=== PATIENT | male | born 1965 | race Caucasian/White ===

== ENCOUNTER → 2017-08-28 | Outpatient (CLI) | payer BC ==
--- NOTE | 2017-08-28 17:19 | EST ---
EXERCISE STRESS DATE OF SERVICE: 08/28/2017. AGE: 51 SEX: M HT: 6 foot 1 WT: 190 PROTOCOL: Escobar STAGE: III DURATION OF EXERCISE: 10:02 HEART RATE REST: 64 BLOOD PRESSURE REST: 156/71 MAXIMUM HEART RATE ACHIEVED: 156 MAXIMUM BLOOD PRESSURE: 190/76 85% MPHR: 144 100% MPHR: 169 METS: 11.7 INDICATION OF THE STUDY: Chest pain. CLINICAL INFORMATION: STRESS DATA: Pretesting physical examination showed a heart rate of 64, pressure is 106/71 mmHg. Baseline EKG showed sinus mechanism. The patient exercised on the treadmill under Escobar protocol for a total of 10 minutes and achieved 11.7 METS. Max heart rate was 156, which is about 92% of maximum predicted heart rate. Maximum blood pressure was 190/76 mmHg. Clinically the patient did not have any symptoms of chest pain or discomfort and the EKG did not show any significant ST or T-wave abnormalities consistent with ischemia. CONCLUSION: 1. Excellent exercise capacity. 2. Normal EKG in response to exercise. MMODL / IJN: [id number] /
== END | disposition home or self-care (01) ==
LOC: RADNMMAIN 10:34
PROVIDERS: ATTEND Family Medicine
DX: R07.9 Chest pain, unspecified (principal)
CPT/HCPCS: 93017

== ENCOUNTER → 2018-04-16 | Outpatient (CLI) | payer BC ==
--- NOTE | 2018-04-16 11:58 | CT ---
EXAMINATION TYPE: CT chest w con DATE OF EXAM: 04/16/2018 COMPARISON: None HISTORY: Dyspnea, abnormal labs CT DLP: 410.7 mGycm Automated exposure control for dose reduction was used. CONTRAST: CT scan of the chest is performed with IV Contrast, patient injected with 100 mL of Isovue 300. FINDINGS: LUNGS: The lungs are grossly clear, there is no concerning parenchymal mass or nodule identified. T here is no pleural effusion or pneumothorax seen. The tracheobronchial tree is patent. MEDIASTINUM: There are no greater than 1 cm hilar or mediastinal lymph nodes. No pericardial effusi on is seen. Thoracic aorta is of normal caliber. The heart is not enlarged. UPPER ABDOMEN: No significant abnormality appreciated. OTHER: No additional significant abnormality is seen. IMPRESSION: 1. No distinct abnormality appreciated to account for the patient's symptoms.
== END ==
LOC: RADCTMAIN 11:03
PROVIDERS: ATTEND Internal Medicine Rheumatology
DX: R06.02 Shortness of breath (principal)
CPT/HCPCS: 71260; Q9967

== ENCOUNTER 2018-05-27 18:24 | Inpatient (IN) | payer BC ==
[2018-05-27] MEDS ORDERED: ASPIRIN 81 MG PO STA (20:04)
[2018-05-27] MEDS ORDERED: NITROGLYCERIN OINT 1 INCH/GM PACKET TOPICAL STA (20:04)
--- NOTE | 2018-05-27 20:15 | ED ---
Chest Pain HPI - General Chief Complaint: Chest Pain Stated Complaint: chest pain Time Seen by Provider: 05/27/18 20:03 Source: patient Mode of arrival: wheelchair Limitations: no limitations - History of Present Illness Initial Comments: This 52-year-old white male presents with a complaint of some chest pain. He states that this is on the left side of his chest and seems radiate into his left back. It started approximately 1 hour prior to arrival and may have lasted 15-20 minutes. He states that he had some radiation going down both of his arms as well. He denies any shortness of breath or nausea or vomiting. He ate relates a history of having a myocardial infarction approximately 5 days ago. He was seen at a small hospital in the [facility] and transferred to [place]. He did have a heart catheterization which did show a 99 % blockage and he ended up receiving a stent. He was just discharged from the hospital one to 2 days ago. He states that this occurred while he was in a grocery store. He was walking but not significantly exerting himself. He denies any leg pain or swelling. He is quite anxious regarding his symptoms due to his recent history. No other complaints or modifying factors. - Related Data Home Medications Medication Instructions Recorded Confirmed Aspirin EC [Ecotrin Low Dose] 81 mg PO DAILY 05/27/18 05/27/18 Atorvastatin [Lipitor] 40 mg PO HS 05/27/18 05/27/18 Clopidogrel [Plavix] 75 mg PO DAILY 05/27/18 05/27/18 Famotidine [Pepcid] 20 mg PO BID 05/27/18 05/27/18 Nitroglycerin Sl Tabs [Nitrostat] 0.4 mg SUBLINGUAL Q5M PRN 05/27/18 05/27/18 Allergies Allergy/AdvReac Type Severity Reaction Status Date / Time venom-wasp Allergy Anaphylaxis Verified 05/27/18 20:43 Review of Systems ROS Statement: Those systems with pertinent positive or pertinent negative responses have been documented in the HPI. ROS Other: All systems not noted in ROS Statement are negative. Past Medical History Past Medical History: Coronary Artery Disease (CAD), GERD/Reflux, Myocardial Infarction ([place]) History of Any Multi-Drug Resistant Organisms: None Reported Past Surgical History: Back Surgery, Heart Catheterization With Stent Additional Past Surgical History / Comment(s): Rhizotomy, Past Anesthesia/Blood Transfusion Reactions: No Reported Reaction Past Psychological History: No Psychological Hx Reported Smoking Status: Never smoker Past Alcohol Use History: None Reported Past Drug Use History: None Reported - Past Family History Mother Family Medical History: No Reported History General Exam - General Exam Comments Initial Comments: GENERAL: The patient is well nourished and well hydrated. VITAL SIGNS: Heart rate, blood pressure, respiratory rate reviewed as recorded in nurse's notes. EYES: Pupils are round and reactive. Extraocular movements are intact. No conjunctival / lid redness or swelling. ENT: No external evidence of injury, swelling, or ecchymosis. Airway is patent. Throat is clear. NECK: Nontender. No swelling or evidence of injury. No subcutaneous emphysema. Trachea is midline. No thyroid mass. HEART: Regular rate and rhythm. Good peripheral pulses. LUNGS/CHEST: Breath sounds clear and equal bilaterally. No rales, rhonchi, or wheezes. No ecchymosis, subcutaneous emphysema, or tenderness. ABDOMEN: Abdomen soft without tenderness. No palpable masses or organomegaly. No peritoneal signs. No abdominal wall swelling or ecchymosis. EXTREMITIES: No extremity tenderness. Normal muscle tone and function. No thoracolumbar tenderness. NEUROLOGIC: Sensation is grossly intact. Cranial nerve exam reveals face is symmetrical, tongue is midline, speech is clear. SKIN: No abrasions or ecchymosis is noted. No induration or masses noted. PSYCHIATRIC: Alert and oriented. Appropriate behavior and judgment. Appears moderately anxious. Limitations: no limitations Course Vital Signs 05/27/18 05/27/18 05/27/18 18:26 20:50 21:00 Temperature 97.9 F Pulse Rate 70 67 Respiratory 18 7 L Rate Blood Pressure 135/71 122/84 122/84 O2 Sat by Pulse 99 98 Oximetry 05/27/18 05/27/18 05/27/18 21:10 21:20 21:30 Temperature Pulse Rate 71 67 Respiratory 10 L 15 13 Rate Blood Pressure 122/84 122/84 120/81 O2 Sat by Pulse 97 96 97 Oximetry 05/27/18 05/27/18 05/27/18 21:40 21:50 22:00 Temperature Pulse Rate 69 72 68 Respiratory 8 L 9 L 12 Rate Blood Pressure 121/76 121/76 121/76 O2 Sat by Pulse 97 98 Oximetry Chest Pain MDM - MDM The patient was seen and examined. All diagnostics were reviewed. An IV is established and he is placed on cyberathlete. No ectopy is identified. He does receive an aspirin as well as some Nitropaste. The EKG shows a normal sinus rhythm at a rate of 67. There is some slight T-wave inversions in leads V5 and V6 and flattened T waves in 1 and aVL. There is some mild artifact. There is no ST elevation identified. The IN intervals 126, QRS duration is 100 , and the QTC intervals 412. The laboratory came back all essentially within normal limits except for an elevated troponin at 2.0. The patient had a chest x -ray which did not show any acute abnormalities. He is not having any chest pain on recheck. He states that his back oftentimes gets sore and he will take Tylenol for that. He is given some Tylenol orally. The case is discussed with Dr. Miranda and he is agreeable with admission. Disposition Clinical Impression: Chest pain, Elevated troponin, Unstable angina, History of heart artery stent Disposition: ADMITTED IP TO THIS HOSP Condition: Fair Is patient prescribed a controlled substance at d/c from ED?: No Referrals: Luis Alberto Munguia MD [Primary Care Provider] - 1-2 days Time of Disposition: 22:29 Decision Date: 05/27/18 Decision Time: 22:29
[2018-05-27 20:39] LABS: Basophils # (A) 0.1 k/uL (0-0.2); Basophils % (A) 1 %; Eosinophils # (A) 0.1 k/uL (0-0.7); Eosinophils % (A) 1 %; HCT 46.4 % (39.0-53.0); HGB 15.3 gm/dL (13.0-17.5); Lymphocytes # (A) 1.3 k/uL (1.0-4.8); Lymphocytes % (A) 15 %; MCH 29.8 pg (25.0-35.0); MCV 90.1 fL (80.0-100.0); Mean Platelet Volume 7.3; Monocytes # (A) 0.5 k/uL (0-1.0); Monocytes % (A) 6 %; Neutrophils # (A) 7.1 k/uL (1.3-7.7); Neutrophils % (A) 77 %; Platelet Count 289 k/uL (150-450); RBC 5.14 m/uL (4.30-5.90); RDW 12.3 % (11.5-15.5); WBC 9.2 k/uL (3.8-10.6)
[2018-05-27 20:47] LABS: Partial Thromboplastin Time 22.5 sec (22.0-30.0); Prothrombin Time 10.5 sec (9.0-12.0)
[2018-05-27 20:48] LABS: ALT 51 U/L (21-72); AST 28 U/L (17-59); Albumin 4.7 g/dL (3.5-5.0); Alkaline Phosphatase 64 U/L (38-126); Anion Gap 9 mmol/L; Blood Urea Nitrogen 19 mg/dL (9-20); Calcium 9.6 mg/dL (8.4-10.2); Carbon Dioxide 30 mmol/L (22-30); Chloride 102 mmol/L (98-107); Glucose 99 mg/dL (74-99); Magnesium 2.3 mg/dL (1.6-2.3); Potassium 3.9 mmol/L (3.5-5.1); Sodium 141 mmol/L (137-145); Total Bilirubin 0.7 mg/dL (0.2-1.3); Total Protein 7.5 g/dL (6.3-8.2)
[2018-05-27 21:00] LABS: Creatine Kinase MB 0.8 ng/mL (0.0-2.4)
[2018-05-27 21:01] LABS: Troponin I 2.03 ng/mL (0.000-0.034)
--- NOTE | 2018-05-27 21:16 | XR ---
EXAMINATION: XR chest 2V DATE AND TIME: 05/27/2018 9:01 PM CLINICAL INDICATION: PHH; Chest Pain TECHNIQUE: Departmental protocol COMPARISON: 01/29/2016 FINDINGS: The lungs are clear. The pleural spaces are negative. The cardiac silhouette is not enlarged. The remainder of the mediastinal silhouette is unremarkable. The skeletal structures and soft tissues are negative for acute findings. IMPRESSION: NO ACUTE PROCESS.
[2018-05-27] MEDS ORDERED: HEPARIN SODIUM,PORCINE 5,000 UNIT/ML 1 ML VIAL IV ONE (21:31)
[2018-05-27] MEDS ORDERED: HEPARIN SODIUM,PORCINE 5,000 UNIT/ML 1 ML VIAL IV PRN (21:31)
[2018-05-27] MEDS ORDERED: HEPARIN SOD,PORK IN 0.45% NACL 25,000 UNIT in 0.45% NACL 1 250ML.BAG IV SCH (21:45)
[2018-05-27] MEDS ORDERED: ACETAMINOPHEN TAB 500 MG TAB PO STA (22:20)
[2018-05-27] MEDS ORDERED: NITROGLYCERIN SL TABS 0.4 MG TAB SUBLINGUAL PRN (22:30)
[2018-05-27] MEDS ORDERED: ACETAMINOPHEN TAB 500 MG TAB PO PRN (22:34)
[2018-05-27] MEDS ORDERED: LORazepam 2 MG/ML INJ IV STA ×2 (22:50→22:51)
[2018-05-27 22:57] VITALS: TEMP 97.2
[2018-05-28] MEDS: NITROGLYCERIN OINT 1 INCH/GM PACKET TOPICAL SCH ×2 (00:56→07:03)
[2018-05-28 03:45] LABS: Creatine Kinase MB 0.7 ng/mL (0.0-2.4)
[2018-05-28 03:46] LABS: Troponin I 1.76 ng/mL (0.000-0.034)
[2018-05-28 08:05] LABS: Basophils # (A) 0.1 k/uL (0-0.2); Basophils % (A) 1 %; Eosinophils # (A) 0.2 k/uL (0-0.7); Eosinophils % (A) 2 %; HCT 40.8 % (39.0-53.0); HGB 13.7 gm/dL (13.0-17.5); Lymphocytes # (A) 1.5 k/uL (1.0-4.8); Lymphocytes % (A) 19 %; MCH 30.3 pg (25.0-35.0); MCHC 33.6 g/dL (31.0-37.0); MCV 90.1 fL (80.0-100.0); Mean Platelet Volume 6.8; Monocytes # (A) 0.5 k/uL (0-1.0); Monocytes % (A) 7 %; Neutrophils # (A) 5.3 k/uL (1.3-7.7); Neutrophils % (A) 70 %; Platelet Count 273 k/uL (150-450); RBC 4.53 m/uL (4.30-5.90); RDW 12.3 % (11.5-15.5); WBC 7.6 k/uL (3.8-10.6)
--- NOTE | 2018-05-28 08:20 | P.CRDCN ---
History of Present Illness Consult date: 05/28/18 Requesting physician: Teodoro Miranda Consult reason: chest pain Chief complaint: Back discomfort History of present illness: This is a pleasant 52-year-old gentleman with history of hyperlipidemia, strong family history of premature coronary artery disease who recently had an acute [place] and was transferred to [facility] where he underwent angioplasty and stenting of the circumflex artery. According to the patient, his hospitalization was fairly uneventful other than the fact that he was quite hypotensive and for this reason was not discharged home with his beta amanda or BARBARA inhibitor. He was discharged home with aspirin, Plavix, and Lipitor. Patient was discharged from the hospital on Saturday, yesterday the patient states he was out doing some shopping with his , he states that all of a sudden he just did not feel well, he experienced some discomfort in his back and for this reason came to the emergency room for further evaluation. At the time of his presentation with his AZ, he states that he was with his son putting balls into a pitching machine, when he developed sudden onset of what he described as heartburn sensation which progressively worsened. Patient does state that he is quite anxious since his heart attack, noticing every ache and pain and unsure if it's his heart or not. The patient has otherwise been quite active, he is the [place] [employer], with no prior documented history of hypertension diabetes or hyperlipidemia prior to his event. He is a nonsmoker. Blood pressure 97/50, heart rate in the 60s, 96% on room air. His EKG on arrival here showed a normal sinus rhythm with nonspecific ST-T wave changes in the lateral leads. Subsequent EKG performed this morning showed a normal sinus rhythm with mild ST-T wave changes noted in the lateral leads. CBC is normal, sodium 141, potassium 3.9, BUN 19, creatinine 0.8. Magnesium 2.3. Troponin 2.0 , 1.7. BNP level 343. At the time of my examination this morning, patient feels well, denies any chest discomfort, breathing is stable. Past Medical History Past Medical History: Coronary Artery Disease (CAD), GERD/Reflux, Myocardial Infarction ([place]) Last Myocardial Infarction Date:: 05/22/18 History of Any Multi-Drug Resistant Organisms: None Reported Past Surgical History: Back Surgery, Heart Catheterization With Stent, Tonsillectomy Additional Past Surgical History / Comment(s): Rhizotomy Past Anesthesia/Blood Transfusion Reactions: No Reported Reaction Date of Last Stent Placement:: 05/22/18 Past Psychological History: No Psychological Hx Reported Smoking Status: Never smoker Past Alcohol Use History: None Reported Past Drug Use History: None Reported - Past Family History Mother Family Medical History: No Reported History Medications and Allergies Home Medications Medication Instructions Recorded Confirmed Type Aspirin EC [Ecotrin Low Dose] 81 mg PO DAILY 05/27/18 05/27/18 History Atorvastatin [Lipitor] 40 mg PO HS 05/27/18 05/27/18 History Clopidogrel [Plavix] 75 mg PO DAILY 05/27/18 05/27/18 History Famotidine [Pepcid] 20 mg PO BID 05/27/18 05/27/18 History Nitroglycerin Sl Tabs [Nitrostat] 0.4 mg SUBLINGUAL Q5M PRN 05/27/18 05/27/18 History Allergies Allergy/AdvReac Type Severity Reaction Status Date / Time venom-wasp Allergy Anaphylaxis Verified 05/27/18 20:43 Physical Exam Vitals: Vital Signs Temp Pulse Pulse Resp BP BP Pulse Ox 05/28/18 03:53 65 15 97/51 96 05/27/18 23:45 18 05/27/18 23:44 97 18 119/68 96 05/27/18 22:56 97.2 F L 05/27/18 22:50 93 25 H 141/86 96 05/27/18 22:40 68 8 L 132/84 05/27/18 22:30 83 13 132/84 96 05/27/18 22:20 63 8 L 118/74 05/27/18 22:10 78 15 118/74 98 05/27/18 22:00 68 12 121/76 05/27/18 21:50 72 9 L 121/76 98 05/27/18 21:40 69 8 L 121/76 97 05/27/18 21:30 13 120/81 97 05/27/18 21:20 67 15 122/84 96 05/27/18 21:10 71 10 L 122/84 97 05/27/18 21:00 122/84 05/27/18 20:50 67 7 L 122/84 98 05/27/18 18:26 97.9 F 70 18 135/71 99 Intake and Output 05/27/18 05/28/18 05/28/18 22:59 06:59 14:59 Intake Total 53.333 Balance 53.333 Intake: Intake, IV Titration 53.333 Amount Heparin Sod,Pork in 0.45% 53.333 NaCl 25,000 unit In 0.45 % NaCl 1 250ml.bag @ 10 mls/hr IV .Q24H [facility] Rx#: [id number] Other: Voiding Method Toilet # Voids 1 2 Weight 86.183 kg PHYSICAL EXAMINATION: GENERAL: 52-year-old gentleman in no acute distress at the time of my examination HEENT: Head is atraumatic, normocephalic. Pupils equal, round. Sclera anicteric. Conjunctiva are clear. Mucous membranes of the mouth are moist. Neck is supple. There is no elevated jugular venous pressure. No carotid bruit is heard. HEART EXAMINATION: Heart S1, S2 normal. No murmur or gallop heard. CHEST EXAMINATION: Lungs are clear to auscultation and precussion. No chest wall tenderness is noted on palpation or with deep breathing. ABDOMEN: Soft, nontender. Bowel sounds are heard. No organomegaly noted. EXTREMITIES: 2+ peripheral pulses with no evidence of peripheral edema and no calf tenderness noted. NEUROLOGIC patient is awake, alert and oriented 3 . . Results 05/28/18 07:38 05/27/18 20:23 Cardiac Enzymes 05/27/18 05/27/18 05/28/18 Range/Units 20:23 20:23 02:49 AST 28 (17-59) U/L CK-MB (CK-2) 0.8 0.7 (0.0-2.4) ng/mL Troponin I 2.030 H* 1.760 H* (0.000-0.034) ng/mL Coagulation 05/27/18 05/28/18 Range/Units 20:23 02:49 PT 10.5 (9.0-12.0) sec APTT 22.5 35.6 H (22.0-30.0) sec CBC 05/27/18 05/28/18 Range/Units 20:23 07:38 WBC 9.2 7.6 (3.8-10.6) k/uL RBC 5.14 4.53 (4.30-5.90) m/uL Hgb 15.3 13.7 (13.0-17.5) gm/dL Hct 46.4 40.8 (39.0-53.0) % Plt Count 289 273 (150-450) k/uL Comprehensive Metabolic Panel 05/27/18 Range/Units 20:23 Sodium 141 (137-145) mmol/L Potassium 3.9 (3.5-5.1) mmol/L Chloride 102 (98-107) mmol/L Carbon Dioxide 30 (22-30) mmol/L BUN 19 (9-20) mg/dL Creatinine 0.89 (0.66-1.25) mg/dL Glucose 99 (74-99) mg/dL Calcium 9.6 (8.4-10.2) mg/dL AST 28 (17-59) U/L ALT 51 (21-72) U/L Alkaline Phosphatase 64 (38-126) U/L Total Protein 7.5 (6.3-8.2) g/dL Albumin 4.7 (3.5-5.0) g/dL Current Medications Generic Name Dose Route Start Last Admin Trade Name Freq PRN Reason Stop Dose Admin Acetaminophen 1,000 mg 05/27/18 22:34 Tylenol Tab PO Q6H PRN Pain Aspirin 325 mg 05/28/18 09:00 Aspirin PO DAILY [facility] Atorvastatin Calcium 40 mg 05/28/18 21:00 Lipitor PO HS [facility] Clopidogrel Bisulfate 75 mg 05/28/18 09:00 Plavix PO DAILY [facility] Famotidine 20 mg 05/28/18 09:00 Pepcid PO BID [facility] Heparin Sodium (Porcine) 0 unit 05/27/18 21:31 Heparin IV PER PROTOCOL PRN Low PTT Protocol Heparin Sodium/Sodium Chloride 250 mls @ 10 mls/hr 05/27/18 21:45 05/28/18 03 :38 25,000 unit/ Sodium Chloride IV 1,255 units/hr .Q24H [facility] 12.55 mls/hr Titration Protocol Nitroglycerin 1 inch 05/28/18 00:00 05/28/18 07:03 Nitro-Bid Oint TOPICAL Not Given Q6HR [facility] Nitroglycerin 0.4 mg 05/27/18 22:30 Nitrostat SUBLINGUAL Q5M PRN Chest Pain Intake and Output 05/27/18 05/28/18 05/28/18 22:59 06:59 14:59 Intake Total 53.333 Balance 53.333 Intake: Intake, IV Titration 53.333 Amount Heparin Sod,Pork in 0.45% 53.333 NaCl 25,000 unit In 0.45 % NaCl 1 250ml.bag @ 10 mls/hr IV .Q24H [facility] Rx#: [id number] Other: Voiding Method Toilet # Voids 1 2 Weight 86.183 kg 05/28/18 07:38 05/27/18 20:23 EKG Interpretations (text) EKG shows normal sinus rhythm with lateral ST-T wave changes Assessment and Plan Plan: Assessment and plan #1 back discomfort, atypical for acute coronary syndrome. EKG shows normal sinus rhythm with lateral ST-T wave changes. Troponins 2.0 and 1.7. #2 recent myocardial infarction with stenting of the circumflex artery, troponins appear to be on a downward trend from that event. #3 hyperlipidemia #4 family history of premature coronary artery disease Plan We will continue aspirin along with Plavix and Lipitor. Patient is currently not on an BARBARA inhibitor or beta amanda, because they were discontinued prior to his discharge, and it because of hypotension. We will obtain an echocardiogram with Doppler study. Further recommendations to follow. DNP note has been reviewed, I agree with a documented findings and plan of care. Patient was seen and examined.
[2018-05-28 08:27] LABS: Cholesterol 125 mg/dL (<200); HDL Cholesterol 30 mg/dL (40-60); LDL Cholesterol,Calculated 81 mg/dL (0-99); Triglycerides 70 mg/dL (<150)
[2018-05-28 08:40] LABS: Creatine Kinase MB 0.7 ng/mL (0.0-2.4)
[2018-05-28 08:43] LABS: Troponin I 1.49 ng/mL (0.000-0.034)
[2018-05-28] MEDS ORDERED: ASPIRIN 81 MG PO SCH (09:00)
[2018-05-28] MEDS ORDERED: FAMOTIDINE 20 MG TAB PO SCH (09:00)
[2018-05-28] MEDS ORDERED: CLOPIDOGREL 75 MG TAB PO SCH (09:00)
[2018-05-28] MEDS ORDERED: ASPIRIN 325 MG TAB PO SCH (09:00)
--- NOTE | 2018-05-28 10:18 | ECHOF ---
Referral Reason:assess lvf MEASUREMENTS -------- HEIGHT: 180.3 cm WEIGHT: 86.2 kg BP: IVSd: 1.2 cm (0.6 - 1.1) LVIDd: 3.5 cm (3.9 - 5.3) LVPWd: 1.5 cm (0.6 - 1.1) IVSs: 1.6 cm LVIDs: 2.2 cm LVPWs: 2.0 cm Ao Diam: 3.0 cm (2.0 - 3.7) AV Cusp: 2.3 cm (1.5 - 2.6) LA Diam: 2.9 cm (2.7 - 3.8) MV EXCURSION: 17.007 mm (> 18.000) MV EF SLOPE: 85 mm/s (70 - 150) EPSS: 0.4 cm MV E Jensen: 0.90 m/s MV DecT: 203 ms MV A Jensen: 0.90 m/s MV E/A Ratio: 1.00 FINDINGS -------- Resting tachycardia (HR>100bpm). This was a technically good study. The left ventricular size is normal. There is mild concentric left ventricular hypertrophy. Overa ll left ventricular systolic function is normal with, an EF between 55 - 60 %. The right ventricle is normal in size and function. The left atrium is normal in size. The right atrium is normal in size. The aortic valve is trileaflet and appears structurally normal. Mild mitral regurgitation is present. Mild tricuspid regurgitation present. The right ventricular systolic pressure, as measured by Doppl er, is {RVSP}. Pulmonic valve appears structurally normal. The aortic root size is normal. Normal inferior vena cava with normal inspiratory collapse consistent with estimated right atrial pre ssure of 5 mmHg. The pericardium is normal. CONCLUSIONS -------- 1. Resting tachycardia (HR>100bpm). 2. This was a technically good study. 3. The left ventricular size is normal. 4. There is mild concentric left ventricular hypertrophy. 5. Overall left ventricular systolic function is normal with, an EF between 55 - 60 %. 6. The right ventricle is normal in size and function. 7. The left atrium is normal in size. 8. The right atrium is normal in size. 9. The aortic valve is trileaflet and appears structurally normal. 10. Mild mitral regurgitation is present. 11. Mild tricuspid regurgitation present. 12. The right ventricular systolic pressure, as measured by Doppler, is {RVSP}. 13. Pulmonic valve appears structurally normal. 14. The aortic root size is normal. 15. Normal inferior vena cava with normal inspiratory collapse consistent with estimated right atrial pressure of 5 mmHg. 16. The pericardium is normal. UTILITY AIDE: Cate Dick RDCS
[2018-05-28 16:42] VITALS: BP 115/70; PULSE 70; RESP 18
[2018-05-28] MEDS ORDERED: ATORVASTATIN 40 MG TAB PO SCH (21:00)
--- NOTE | 2018-05-29 07:15 | DS ---
DISCHARGE SUMMARY HISTORY PHYSICAL AND DISCHARGE SUMMARY: DATE OF ADMISSION: 05/27/2018 DATE OF DISCHARGE: 05/28/2018 DATE OF SERVICE: 05/28/2018 PRESENTING COMPLAINT: Back pain. HISTORY OF PRESENTING COMPLAINT: This is a very pleasant 52-year-old patient whose family doctor is Dr. Munguia. Chronic stable medical conditions include GERD, upper back pain, muscle spasms. Patient was in [facility] and underwent a stent to the circumflex on May 22 Patient was home for one day, was there for five days. Patient went to the grocery store with his and normally does get pain between the scapula. This time again he got the pain between the scapula, but this time the pain also went down both the arms and caused discomfort. There was no dizziness. No lightheadedness. No perspiration. Because of his recent coronary intervention, patient became somewhat concerned and decided to come into the ER. ADMITTING DIAGNOSIS: Unstable angina in for a cardiology workup. Patient's troponins were coming down. Cardiology was consulted for the same. Patient also was put on IV heparin. REVIEW OF SYSTEMS: CONSTITUTIONAL: None. HEENT: None. RESPIRATORY: None. CARDIOVASCULAR: No precordial pain. GASTROINTESTINAL: Heartburn. GENITOURINARY: None. MUSCULOSKELETAL: Chronic upper back pain. DERMATOLOGICAL: None. LYMPHATIC: None. PSYCHIATRY: Anxious. NEUROLOGICAL: None. PAST MEDICAL HISTORY: Coronary artery with stent to the circumflex a week ago, GERD, upper back pain from spasm from surgery. PAST SURGICAL HISTORY: Back surgical history, cardiac cath with stent, tonsillectomy, rhizotomy. SOCIAL HISTORY: No smoking, no alcohol. Patient is a [employer] [place] fire[employer], with 3 children, no smoking, alcohol rarely. FAMILY HISTORY: Reviewed, noncontributory to presentation. HOME MEDICATIONS: 1. Nitrostat 0.4 sublingual q.5 p.r.n. 2. Pepcid 20 mg b.i.d. 3. Plavix 75 mg p.o. daily. 4. Lipitor 40 mg q.h.s. 5. Aspirin 81 mg p.o. daily. ALLERGIES: To VENOM WASP. PHYSICAL EXAMINATION: Vital signs on presentation, temperature 97.9, pulse 90, respiration 18, blood pressure 135/71, pulse ox 99% on room air. GENERAL APPEARANCE: Average build, sitting up, anxious-appearing. EYES: Pupils equal, conjunctivae normal. HEENT: External appearance of nose is normal, oral cavity normal. NECK: JVD not raised. Mass not palpable. RESPIRATORY: Effort normal. Lungs are clear. CARDIOVASCULAR: First and second sounds are normal, no edema. ABDOMEN: Soft, nontender. Liver and spleen not palpable. LYMPHATIC: No lymph node palpable. PSYCHIATRY: Alert and oriented x3. Mood and affect slightly anxious-appearing. NEUROLOGICAL: Pupils equal. Cranial nerves grossly intact. Power and sensation grossly intact. INVESTIGATIONS: White count 9.2, hemoglobin 15.3, potassium 3.9. BUN and creatinine normal. Troponin 2.0, 1.7, 1.4. LDL 81. EKG tracing personally reviewed by me showed normal sinus rhythm and some nonspecific ST-segment changes in the anterolateral leads. Chest x-ray film personally reviewed by me, showed clear lung mansfield. ASSESSMENT: 1. Upper back pain in a patient who has had chronic back pain. This could be musculoskeletal. Patient was admitted to rule out unstable angina. 2. Elevated troponin, probably residual from recent DC and coronary intervention. 3. Upper back pain with muscle spasm. 4. Gastroesophageal reflux disease. 5. IV heparin monitoring. PLAN: Home medications are resumed. Patient is seen by Dr. Luna from Cardiology. I discussed with him, patient was encouraged to ambulate in the hallway. There was no further chest pain. Patient will be discharged home. Care was discussed with the patient. Also, alternative medications were discussed with him about his anxiety. Patient also look at cardiac rehab. Additionally, patient has not been taking BARBARA inhibitor or beta amanda because blood pressure has been running low. DISCHARGE MEDICATIONS: 1. Aspirin 81 mg a day. 2. Lipitor 40 mg q.h.s. 3. Plavix 75 mg a day. 4. Pepcid 20 mg b.i.d. 5. Nitrostat 0.4 q.5 p.r.n. Follow up with Dr. Luna on 06/03/2018. Follow up with Dr. Munguia on 05/30/2018. This is both a history and physical and discharge summary. MMODL / IJN: [id number] /
== END 2018-05-28 17:04 | disposition home or self-care (01) | DRG 551 ==
LOC: EC 18:24 → 3SCARD 22:29
PROVIDERS: ADMIT Hospitalist; ATTEND Hospitalist
DX: M62.830 Muscle spasm of back (principal); I21.9 Acute myocardial infarction, unspecified; R07.9 Chest pain, unspecified; E78.5 Hyperlipidemia, unspecified; F41.9 Anxiety disorder, unspecified; G89.29 Other chronic pain; K21.9 Gastro-esophageal reflux disease without esophagitis; I25.10 Atherosclerotic heart disease of native coronary artery without angina pectoris; M54.6 Pain in thoracic spine; Z95.5 Presence of coronary angioplasty implant and graft; Z79.02 Long term (current) use of antithrombotics/antiplatelets; Z79.82 Long term (current) use of aspirin; Z79.899 Other long term (current) drug therapy; Z91.038 Other insect allergy status; Z82.49 Family history of ischemic heart disease and other diseases of the circulatory system
CPT/HCPCS: 36415; 71046; 80053; 80061; 82550; 82553; 83735; 83880; 84484; 85025; 85610; 85730; 93005; 93306; 96365; 96375; 96376; 99285

== ENCOUNTER 2018-05-30 18:21 | Observation (INO) | payer BC ==
--- NOTE | 2018-05-30 18:49 | ED ---
General Adult HPI - General Chief complaint: Chest Pain Stated complaint: CHEST PAIN, HEART Hx Time Seen by Provider: 05/30/18 18:30 Source: patient, RN notes reviewed, old records reviewed Mode of arrival: ambulatory Limitations: no limitations - History of Present Illness Initial comments: 52-year-old male history of CAD status post [place] with stent placement 8 days ago. Patient was evaluated at an outside hospital, received coronary angiography to right radial artery, did have stent placed in the circumflex this was reported by the patient. He was seen here 2 days ago with anterior chest pain. Today he is presenting for reevaluation of chest pain. This is left anterior upper chest pain, worse with exertion. Symptoms began while the patient was walking around the grocery store. Denies significant dyspnea. Denies abdominal pain. Pain is nearly resolved at the time my evaluation. Patient did take his aspirin, Plavix this morning, he also took 2, 81 mg aspirin and one nitroglycerin just prior to arrival with some improvement in his symptoms. - Related Data Home Medications Medication Instructions Recorded Confirmed Aspirin EC [Ecotrin Low Dose] 81 mg PO DAILY 05/27/18 05/30/18 Atorvastatin [Lipitor] 40 mg PO HS 05/27/18 05/30/18 Clopidogrel [Plavix] 75 mg PO DAILY 05/27/18 05/30/18 Famotidine [Pepcid] 20 mg PO BID 05/27/18 05/30/18 Nitroglycerin Sl Tabs [Nitrostat] 0.4 mg SUBLINGUAL Q5M PRN 05/27/18 05/30/18 Fluticasone Nasal [place] [Flonase 1 spray EA NOSTRIL DAILY PRN 05/30/18 05/30/18 Nasal [place]] Allergies Allergy/AdvReac Type Severity Reaction Status Date / Time venom-wasp Allergy Anaphylaxis Verified 05/30/18 20:03 Review of Systems ROS Statement: Those systems with pertinent positive or pertinent negative responses have been documented in the HPI. ROS Other: All systems not noted in ROS Statement are negative. Past Medical History Past Medical History: Coronary Artery Disease (CAD), GERD/Reflux, Myocardial Infarction ([place]) Additional Past Medical History / Comment(s): STEMI Last Myocardial Infarction Date:: 05/22/18 History of Any Multi-Drug Resistant Organisms: None Reported Past Surgical History: Back Surgery, Heart Catheterization With Stent, Tonsillectomy Additional Past Surgical History / Comment(s): Rhizotomy Past Anesthesia/Blood Transfusion Reactions: No Reported Reaction Date of Last Stent Placement:: 05/22/18 Past Psychological History: No Psychological Hx Reported Smoking Status: Never smoker Past Alcohol Use History: None Reported Past Drug Use History: None Reported - Past Family History Mother Family Medical History: No Reported History General Exam Limitations: no limitations General appearance: alert, in no apparent distress Head exam: Present: atraumatic, normocephalic Eye exam: Present: normal appearance, PERRL ENT exam: Present: normal exam Neck exam: Present: normal inspection. Absent: tenderness, meningismus Respiratory exam: Present: normal lung sounds bilaterally. Absent: respiratory distress, wheezes, rales Cardiovascular Exam: Present: regular rate, normal rhythm GI/Abdominal exam: Present: soft. Absent: distended, tenderness, guarding Extremities exam: Present: normal inspection, normal capillary refill. Absent: pedal edema Neurological exam: Present: alert, oriented X3, CN II-XII intact. Absent: motor sensory deficit Psychiatric exam: Present: normal affect, normal mood Skin exam: Present: warm, dry, intact. Absent: cyanosis, diaphoretic Course Vital Signs 05/30/18 18:23 Temperature 97.4 F L Pulse Rate 77 Respiratory 20 Rate Blood Pressure 112/70 O2 Sat by Pulse 97 Oximetry EKG Findings - EKG Comments: EKG Findings:: EKG: Obtained at 1836, normal sinus rhythm, incomplete right bundle-branch block, interpreted as possible right ventricular hypertrophy, Q waves in both inferior and lateral precordial leads, rate of 71, MT interval 142 , QRS duration 102, QTC 425, no ST segment elevation or depression, T waves are upright in the lateral precordium compared to T-wave inversions on previous EKG. EKG obtained at 2019, normal sinus rhythm, incomplete right bundle branch block, possible right ventricular hypertrophy, rate of 76, MT interval 146, QRS duration 104, QTC 441 STsegmentelevationordepression Medical Decision Making - Medical Decision Making 52-year-old female history of WI 8 days prior presenting for reevaluation of exertional chest pain, left-sided chest pain. Pain is not positional. He developed pain while walking at the grocery store. Echo was reviewed from 2 days prior, showed EF of 55-60%, normal pericardium. Patient did have elevated troponins at that time these were down trending patient was discharged. Laboratory studies today reveal white blood cell count 9.8, hemoglobin 15.7, CMP is normal, troponin is elevated however it is down trending as 0.293. Patient's EKG is negative for ST segment elevation, no ST segment depression, T waves are upright. Given the elevated troponin, recent WI, patient will be admitted to ensure that troponins are down trending as his symptoms began 30 minutes prior to arrival. Serial cardiac enzymes will be obtained, patient will be kept on telemetry, he was initiated on heparin awaiting down trending enzymes. Cardiology placed on consult. - Lab Data Result diagrams: 05/30/18 18:43 05/30/18 18:43 Lab Results 05/30/18 05/30/18 05/30/18 Range/Units 18:43 18:43 18:43 WBC 9.8 (3.8-10.6) k/uL RBC 5.15 (4.30-5.90) m/uL Hgb 15.7 (13.0-17.5) gm/dL Hct 46.1 (39.0-53.0) % MCV 89.5 (80.0-100.0) fL MCH 30.5 (25.0-35.0) pg MCHC 34.0 (31.0-37.0) g/dL RDW 12.2 (11.5-15.5) % Plt Count 307 (150-450) k/uL Neutrophils % 75 % Lymphocytes % 17 % Monocytes % 5 % Eosinophils % 1 % Basophils % 1 % Neutrophils # 7.3 (1.3-7.7) k/uL Lymphocytes # 1.7 (1.0-4.8) k/uL Monocytes # 0.5 (0-1.0) k/uL Eosinophils # 0.1 (0-0.7) k/uL Basophils # 0.1 (0-0.2) k/uL PT (9.0-12.0) sec INR (<1.2) APTT (22.0-30.0) sec Sodium 139 (137-145) mmol/L Potassium 4.1 (3.5-5.1) mmol/L Chloride 102 (98-107) mmol/L Carbon Dioxide 27 (22-30) mmol/L Anion Gap 10 mmol/L BUN 18 (9-20) mg/dL Creatinine 0.95 (0.66-1.25) mg/dL Est GFR (CKD-EPI)AfAm >90 (>60 ml/min/1.73 sqM) Est GFR (CKD-EPI)NonAf >90 (>60 ml/min/1.73 sqM) Glucose 92 (74-99) mg/dL Calcium 9.6 (8.4-10.2) mg/dL Magnesium 2.1 (1.6-2.3) mg/dL Total Bilirubin 0.7 (0.2-1.3) mg/dL AST 35 (17-59) U/L ALT 63 (21-72) U/L Alkaline Phosphatase 69 (38-126) U/L Total Creatine Kinase 59 (55-170) U/L CK-MB (CK-2) 0.8 (0.0-2.4) ng/mL CK-MB (CK-2) Rel Index 1.4 Troponin I 0.293 H* (0.000-0.034) ng/mL NT-Pro-B Natriuret Pep pg/mL Total Protein 7.0 (6.3-8.2) g/dL Albumin 4.4 (3.5-5.0) g/dL 05/30/18 05/30/18 Range/Units 18:43 18:43 WBC (3.8-10.6) k/uL RBC (4.30-5.90) m/uL Hgb (13.0-17.5) gm/dL Hct (39.0-53.0) % MCV (80.0-100.0) fL MCH (25.0-35.0) pg MCHC (31.0-37.0) g/dL RDW (11.5-15.5) % Plt Count (150-450) k/uL Neutrophils % % Lymphocytes % % Monocytes % % Eosinophils % % Basophils % % Neutrophils # (1.3-7.7) k/uL Lymphocytes # (1.0-4.8) k/uL Monocytes # (0-1.0) k/uL Eosinophils # (0-0.7) k/uL Basophils # (0-0.2) k/uL PT 10.7 (9.0-12.0) sec INR 1.0 (<1.2) APTT 23.1 (22.0-30.0) sec Sodium (137-145) mmol/L Potassium (3.5-5.1) mmol/L Chloride (98-107) mmol/L Carbon Dioxide (22-30) mmol/L Anion Gap mmol/L BUN (9-20) mg/dL Creatinine (0.66-1.25) mg/dL Est GFR (CKD-EPI)AfAm (>60 ml/min/1.73 sqM) Est GFR (CKD-EPI)NonAf (>60 ml/min/1.73 sqM) Glucose (74-99) mg/dL Calcium (8.4-10.2) mg/dL Magnesium (1.6-2.3) mg/dL Total Bilirubin (0.2-1.3) mg/dL AST (17-59) U/L ALT (21-72) U/L Alkaline Phosphatase (38-126) U/L Total Creatine Kinase (55-170) U/L CK-MB (CK-2) (0.0-2.4) ng/mL CK-MB (CK-2) Rel Index Troponin I (0.000-0.034) ng/mL NT-Pro-B Natriuret Pep 279 pg/mL Total Protein (6.3-8.2) g/dL Albumin (3.5-5.0) g/dL Disposition Clinical Impression: Elevated troponin, Chest pain Disposition: ADMITTED IP TO THIS [facility] Condition: Stable Is patient prescribed a controlled substance at d/c from ED?: No Referrals: Luis Alberto Munguia MD [Primary Care Provider] - 1-2 days Decision to Admit Reason: Admit from EC Decision Date: 05/30/18 Decision Time: 20:32
[2018-05-30 19:13] LABS: Basophils # (A) 0.1 k/uL (0-0.2); Basophils % (A) 1 %; Eosinophils # (A) 0.1 k/uL (0-0.7); Eosinophils % (A) 1 %; HCT 46.1 % (39.0-53.0); HGB 15.7 gm/dL (13.0-17.5); Lymphocytes # (A) 1.7 k/uL (1.0-4.8); Lymphocytes % (A) 17 %; MCH 30.5 pg (25.0-35.0); MCV 89.5 fL (80.0-100.0); Mean Platelet Volume 6.8; Monocytes # (A) 0.5 k/uL (0-1.0); Monocytes % (A) 5 %; Neutrophils # (A) 7.3 k/uL (1.3-7.7); Neutrophils % (A) 75 %; Platelet Count 307 k/uL (150-450); RBC 5.15 m/uL (4.30-5.90); RDW 12.2 % (11.5-15.5); WBC 9.8 k/uL (3.8-10.6)
[2018-05-30 19:27] LABS: Partial Thromboplastin Time 23.1 sec (22.0-30.0); Prothrombin Time 10.7 sec (9.0-12.0)
[2018-05-30 19:28] LABS: ALT 63 U/L (21-72); AST 35 U/L (17-59); Albumin 4.4 g/dL (3.5-5.0); Alkaline Phosphatase 69 U/L (38-126); Anion Gap 10 mmol/L; Blood Urea Nitrogen 18 mg/dL (9-20); Calcium 9.6 mg/dL (8.4-10.2); Carbon Dioxide 27 mmol/L (22-30); Chloride 102 mmol/L (98-107); Glucose 92 mg/dL (74-99); Magnesium 2.1 mg/dL (1.6-2.3); Potassium 4.1 mmol/L (3.5-5.1); Sodium 139 mmol/L (137-145); Total Bilirubin 0.7 mg/dL (0.2-1.3)
[2018-05-30 19:41] LABS: Creatine Kinase MB 0.8 ng/mL (0.0-2.4)
[2018-05-30 19:44] LABS: Troponin I 0.293 ng/mL (0.000-0.034)
[2018-05-30] MEDS ORDERED: HEPARIN SODIUM,PORCINE 5,000 UNIT/ML 1 ML VIAL IV PRN (20:08)
[2018-05-30] MEDS ORDERED: HEPARIN SODIUM,PORCINE 5,000 UNIT/ML 1 ML VIAL IV ONE (20:08)
[2018-05-30] MEDS ORDERED: NITROGLYCERIN SL TABS 0.4 MG TAB SUBLINGUAL PRN (20:09)
[2018-05-30] MEDS ORDERED: HEPARIN SOD,PORK IN 0.45% NACL 25,000 UNIT in 0.45% NACL 1 250ML.BAG IV SCH (20:15)
--- NOTE | 2018-05-30 20:20 | XR ---
EXAMINATION: XR chest 2V DATE AND TIME: 05/30/2018 7:32 PM CLINICAL INDICATION: PHH; Chest Pain TECHNIQUE: Departmental protocol COMPARISON: 05/27/2018 9:06 PM FINDINGS: The lungs are clear. The pleural spaces are negative. The cardiac silhouette is not enlarged. The remainder of the mediastinal silhouette is unremarkable. The skeletal structures and soft tissues are negative for acute findings. IMPRESSION: NO ACUTE PROCESS.
[2018-05-30] MEDS ORDERED: MORPHINE SULFATE 4 MG/ML SYRINGE IV PRN (20:21)
[2018-05-30] MEDS ORDERED: ONDANSETRON 4 MG/2 ML VIAL IVP PRN (20:21)
[2018-05-30] MEDS ORDERED: NALOXONE 0.4 MG/ML 1 ML VIAL IV PRN (20:21)
[2018-05-30] MEDS ORDERED: SODIUM CHLORIDE 0.9% 1,000 ML IV SCH (20:30)
[2018-05-30] MEDS ORDERED: FAMOTIDINE 20 MG TAB PO STA (20:55)
[2018-05-30] MEDS ORDERED: ATORVASTATIN 40 MG TAB PO SCH (21:00)
[2018-05-30] MEDS: FAMOTIDINE 20 MG TAB PO SCH (21:01)
[2018-05-30] MEDS ORDERED: TEMAZEPAM 15 MG CAP PO PRN (21:42)
[2018-05-30 21:47] VITALS: BMI 25.7
[2018-05-30] MEDS: METOPROLOL TARTRATE 12.5 MG TAB PO SCH (22:01)
[2018-05-30] MEDS: ACETAMINOPHEN TAB 325 MG TAB PO PRN (23:37)
[2018-05-31 00:24] VITALS: RESP 18
[2018-05-31 01:37] LABS: Creatine Kinase MB 0.8 ng/mL (0.0-2.4)
[2018-05-31 01:59] LABS: Troponin I 0.296 ng/mL (0.000-0.034)
[2018-05-31 07:56] LABS: Basophils # (A) 0.1 k/uL (0-0.2); Basophils % (A) 1 %; Eosinophils # (A) 0.1 k/uL (0-0.7); Eosinophils % (A) 2 %; HCT 44.1 % (39.0-53.0); HGB 14.7 gm/dL (13.0-17.5); Lymphocytes # (A) 1.6 k/uL (1.0-4.8); Lymphocytes % (A) 23 %; MCH 30.3 pg (25.0-35.0); MCHC 33.5 g/dL (31.0-37.0); MCV 90.4 fL (80.0-100.0); Mean Platelet Volume 6.8; Monocytes # (A) 0.5 k/uL (0-1.0); Monocytes % (A) 7 %; Neutrophils # (A) 4.6 k/uL (1.3-7.7); Neutrophils % (A) 66 %; Platelet Count 292 k/uL (150-450); RBC 4.87 m/uL (4.30-5.90); RDW 12.2 % (11.5-15.5)
[2018-05-31 08:56] LABS: Creatine Kinase MB 0.6 ng/mL (0.0-2.4)
[2018-05-31] MEDS: FAMOTIDINE 20 MG TAB PO SCH ×2 (08:57→19:49)
[2018-05-31] MEDS ORDERED: ASPIRIN 81 MG PO SCH (09:00)
[2018-05-31] MEDS ORDERED: CLOPIDOGREL 75 MG TAB PO SCH (09:00)
[2018-05-31 09:18] LABS: Troponin I 0.226 ng/mL (0.000-0.034)
[2018-05-31] MEDS ORDERED: SODIUM CHLORIDE 0.9% 1,000 ML in EMPTY BAG 1 BAG IV ONE (10:45)
[2018-05-31] MEDS ORDERED: ATORVASTATIN 80 MG TAB PO STA (10:45)
[2018-05-31] MEDS ORDERED: ALPRAZolam 0.25 MG TAB PO PRN (10:45)
[2018-05-31] MEDS ORDERED: ASPIRIN 325 MG TAB PO STA (10:45)
[2018-05-31] MEDS ORDERED: ALPRAZolam 0.5 MG TAB PO PRN (10:45)
--- NOTE | 2018-05-31 11:54 | P.CRDCN ---
History of Present Illness Consult date: 05/31/18 Requesting physician: Teodoro Miranda Reason for Consult (text): CP, troponin elevation Chief complaint: chest pain History of present illness: This a pleasant but anxious 52-year-old gentleman history of hyperlipidemia, strong family history of premature coronary artery disease and recent acute [place] with symptoms of severe indigestion-like chest and back discomfort at which time he initially presented to [facility] and was transferred to [facility] in [place] and underwent angioplasty and stenting of the circumflex artery. He was also diaphoretic and quite pale. He was discharged home on aspirin, Plavix and Lipitor. He did have some issues with hypotension and therefore beta amanda and BARBARA inhibitor were not added to his regimen. He was recently admitted to the hospital again on May 27 with complaints of overall not feeling well and back discomfort at which time troponins were noted to be trending down and 2-D echo with Doppler showed normal LV systolic function with ejection fraction between 55-60% and no wall motion abnormalities. He was discharged home and scheduled to follow-up with Dr. Luna in the office this coming Saturday. He presented yet again this admission with complaints of left-sided chest discomfort that occurred while grocery shopping. No shortness of breath, no diaphoresis and no nausea. EKG showed no acute changes. Chest x-ray showed no acute process. Troponins remain elevated but continue to trend downward at 0.293, 0.296 and 0.226. NT proBNP was normal at 279. He continues to have some mild intermittent left- sided chest discomfort as well as pain in his back which at this time he believes to be musculoskeletal in nature. Past Medical History Past Medical History: Coronary Artery Disease (CAD), GERD/Reflux, Myocardial Infarction ([place]) Additional Past Medical History / Comment(s): STEMI Last Myocardial Infarction Date:: 05/22/18 History of Any Multi-Drug Resistant Organisms: None Reported Past Surgical History: Back Surgery, Heart Catheterization With Stent, Tonsillectomy Additional Past Surgical History / Comment(s): Rhizotomy Past Anesthesia/Blood Transfusion Reactions: No Reported Reaction Date of Last Stent Placement:: 05/22/18 Past Psychological History: No Psychological Hx Reported Smoking Status: Never smoker Past Alcohol Use History: None Reported Past Drug Use History: None Reported - Past Family History Mother Family Medical History: No Reported History Medications and Allergies Home Medications Medication Instructions Recorded Confirmed Type Aspirin EC [Ecotrin Low Dose] 81 mg PO DAILY 05/27/18 05/30/18 History Atorvastatin [Lipitor] 40 mg PO HS 05/27/18 05/30/18 History Clopidogrel [Plavix] 75 mg PO DAILY 05/27/18 05/30/18 History Famotidine [Pepcid] 20 mg PO BID 05/27/18 05/30/18 History Nitroglycerin Sl Tabs [Nitrostat] 0.4 mg SUBLINGUAL Q5M PRN 05/27/18 05/30/18 History Fluticasone Nasal [place] [Flonase 1 spray EA NOSTRIL DAILY PRN 05/30/18 05/30/18 History Nasal [place]] Allergies Allergy/AdvReac Type Severity Reaction Status Date / Time venom-wasp Allergy Anaphylaxis Verified 05/30/18 20:03 Physical Exam Vitals: Vital Signs Temp Pulse Pulse Resp BP BP Pulse Ox 05/31/18 08:00 98.1 F 66 18 108/69 96 05/31/18 04:00 96.9 F L 60 18 94/59 97 05/31/18 00:00 97.1 F L 60 18 113/71 98 05/30/18 23:30 97.1 F L 60 18 113/71 98 05/30/18 21:43 97.6 F 76 16 121/78 97 05/30/18 21:15 76 16 05/30/18 20:54 72 16 129/76 98 05/30/18 18:23 97.4 F L 77 20 112/70 97 Intake and Output 05/30/18 05/31/18 05/31/18 22:59 06:59 14:59 Intake Total 73.094 Output Total 0 200 Balance 0 -126.906 Intake: Intake, IV Titration 73.094 Amount Heparin Sod,Pork in 0.45% 73.094 NaCl 25,000 unit In 0.45 % NaCl 1 250ml.bag @ 11.6 UNITS/KG/HR 9.99 mls/hr IV .Q24H [facility] Rx#: [id number] Output: Urine 0 200 Other: # Voids 0 1 Weight 86.183 kg 86 kg PHYSICAL EXAMINATION: HEENT: Head is atraumatic, normocephalic. Pupils equal, round. Neck is supple. There is no elevated jugular venous pressure. HEART EXAMINATION: Heart sounds regular, S1 and S2 normal. No murmur or gallop heard. CHEST EXAMINATION: Lungs are clear to auscultation and precussion. No chest wall tenderness is noted on palpation or with deep breathing. ABDOMEN: Soft, nontender. Bowel sounds are heard. No organomegaly noted. EXTREMITIES: 2+ peripheral pulses with no evidence of peripheral edema and no calf tenderness noted. Right radial puncture site soft with ecchymosis, nontender.. NEUROLOGIC patient is awake, alert and oriented x3. . Results 05/31/18 07:04 05/30/18 18:43 Cardiac Enzymes 05/30/18 05/30/18 05/31/18 Range/Units 18:43 18:43 00:27 AST 35 (17-59) U/L CK-MB (CK-2) 0.8 0.8 (0.0-2.4) ng/mL Troponin I 0.293 H* 0.296 H* (0.000-0.034) ng/mL 05/31/18 Range/Units 07:04 AST (17-59) U/L CK-MB (CK-2) 0.6 (0.0-2.4) ng/mL Troponin I 0.226 H* (0.000-0.034) ng/mL Coagulation 05/30/18 05/31/18 Range/Units 18:43 03:00 PT 10.7 (9.0-12.0) sec APTT 23.1 31.0 H (22.0-30.0) sec CBC 05/30/18 05/31/18 Range/Units 18:43 07:04 WBC 9.8 7.0 (3.8-10.6) k/uL RBC 5.15 4.87 (4.30-5.90) m/uL Hgb 15.7 14.7 (13.0-17.5) gm/dL Hct 46.1 44.1 (39.0-53.0) % Plt Count 307 292 (150-450) k/uL Comprehensive Metabolic Panel 05/30/18 Range/Units 18:43 Sodium 139 (137-145) mmol/L Potassium 4.1 (3.5-5.1) mmol/L Chloride 102 (98-107) mmol/L Carbon Dioxide 27 (22-30) mmol/L BUN 18 (9-20) mg/dL Creatinine 0.95 (0.66-1.25) mg/dL Glucose 92 (74-99) mg/dL Calcium 9.6 (8.4-10.2) mg/dL AST 35 (17-59) U/L ALT 63 (21-72) U/L Alkaline Phosphatase 69 (38-126) U/L Total Protein 7.0 (6.3-8.2) g/dL Albumin 4.4 (3.5-5.0) g/dL Current Medications Generic Name Dose Route Start Last Admin Trade Name Freq PRN Reason Stop Dose Admin Acetaminophen 650 mg 05/30/18 23:29 05/30/18 23:37 Tylenol Tab PO 650 mg Q4HR PRN Administration Fever and/ or Pain Aspirin 81 mg 05/31/18 09:00 05/31/18 08:57 Aspirin PO 81 mg DAILY [facility] Administration Atorvastatin Calcium 40 mg 05/30/18 21:00 05/30/18 21:01 Lipitor PO 40 mg HS [facility] Administration Clopidogrel Bisulfate 75 mg 05/31/18 09:00 05/31/18 08:57 Plavix PO 75 mg DAILY [facility] Administration Famotidine 20 mg 05/30/18 21:00 05/31/18 08:57 Pepcid PO 20 mg BID [facility] Administration Heparin Sodium (Porcine) 0 unit 05/30/18 20:08 Heparin IV PER PROTOCOL PRN Low PTT Protocol Heparin Sodium/Sodium Chloride 250 mls @ 9.99 mls/hr 05/30/18 20:15 05/31/18 04:09 25,000 unit/ Sodium Chloride IV 14.6 units/kg/hr .Q24H [facility] 12.58 mls/hr Titration Protocol 11.6 UNITS/KG/HR Sodium Chloride 1,000 mls @ 20 mls/hr 05/30/18 20:30 05/30/18 20:49 Saline 0.9% IV 20 mls/hr .Q24H [facility] Administration Metoprolol Tartrate 12.5 mg 05/30/18 21:00 05/30/18 22:01 Lopressor PO 12.5 mg BID [facility] Administration Morphine Sulfate 4 mg 05/30/18 20:21 Morphine Sulfate (Inj) IV Q4HR PRN Severe Pain Naloxone HCl 0.2 mg 05/30/18 20:21 Narcan IV Q2M PRN Opioid Reversal Nitroglycerin 0.4 mg 05/30/18 20:09 Nitrostat SUBLINGUAL Q5M PRN Chest Pain Ondansetron HCl 4 mg 05/30/18 20:21 Zofran IVP Q8HR PRN Nausea And Vomiting Temazepam 15 mg 05/30/18 21:42 Restoril PO HS PRN Insomnia Intake and Output 05/30/18 05/31/18 05/31/18 22:59 06:59 14:59 Intake Total 73.094 Output Total 0 200 Balance 0 -126.906 Intake: Intake, IV Titration 73.094 Amount Heparin Sod,Pork in 0.45% 73.094 NaCl 25,000 unit In 0.45 % NaCl 1 250ml.bag @ 11.6 UNITS/KG/HR 9.99 mls/hr IV .Q24H [facility] Rx#: [id number] Output: Urine 0 200 Other: # Voids 0 1 Weight 86.183 kg 86 kg 05/31/18 07:04 05/30/18 18:43 Assessment and Plan Assessment: #1 recurrent left-sided chest and back discomfort #2 recent myocardial infarction with stenting of the circumflex, troponins continue to be on a downward trend #3 hyperlipidemia #4 family history of premature coronary artery disease Plan: From cardiology's perspective, due to recurrence of chest discomfort and recent cardiac event, we will schedule the patient for cardiac catheterization today. Procedure was discussed with the patient along with risks and benefits. He is in agreement. Further recommendations to follow depending on findings of coronary angiography. BREWING TECHNICIAN note has been reviewed, I agree with a documented findings and plan of care. Patient was seen and examined.
[2018-05-31] MEDS: METOPROLOL TARTRATE 12.5 MG TAB PO SCH (12:27)
[2018-05-31] MEDS ORDERED: IV FLUID CONTINUATION 150 ML IV ONE (14:45)
[2018-05-31] MEDS ORDERED: VERAPAMIL 2.5 MG/ML 2 ML AMP ONE (15:08)
[2018-05-31] MEDS ORDERED: LIDOCAINE 1% INJ 10MG/ML (20 ML MDV) ONE (15:08)
[2018-05-31] MEDS ORDERED: fentaNYL (PF) 50 MCG/ML 2 ML AMP ONE (15:09)
[2018-05-31] MEDS ORDERED: fentaNYL (PF) 50 MCG/ML 2 ML AMP IVP ONE (15:18)
[2018-05-31] MEDS: MIDAZOLAM 2 MG/2 ML VIAL IVP ONE ×2 (15:21→15:30)
[2018-05-31] MEDS ORDERED: LIDOCAINE 1% INJ 10MG/ML (20 ML MDV) SQ ONE ×2 (15:22)
[2018-05-31] MEDS: VERAPAMIL SYRINGE (5 MG/10 ML) INTRAARTER ONE ×2 (15:23→15:30)
[2018-05-31] MEDS ORDERED: VERAPAMIL SYRINGE (5 MG/10 ML) INTRAARTER ONE (15:24)
[2018-05-31] MEDS ORDERED: SODIUM CHLORIDE 0.9% 500 ML 500 ML IV ONE (15:30)
[2018-05-31] MEDS ORDERED: HEPARIN SODIUM 1,000 UN/ML (10ML VL) ONE (15:34)
[2018-05-31] MEDS ORDERED: HEPARIN SODIUM 1,000 UN/ML (10ML VL) IV ONE (15:36)
[2018-05-31] MEDS ORDERED: IOPAMIDOL-370 50ML BTL INJ ONE (15:47)
[2018-05-31] MEDS ORDERED: IOPAMIDOL-370 100ML BTL INJ ONE (15:47)
[2018-05-31] MEDS ORDERED: RX INFO: IV CONTRAST WAS GIVEN 1 EACH MISC MISCELLANE PRN (16:02)
[2018-05-31] MEDS ORDERED: SODIUM CHLORIDE 0.9% 1,000 ML IV SCH (16:15)
--- NOTE | 2018-05-31 16:26 | CC ---
CARDIAC CATHETERIZATION REPORT Mr. Mike is a 52-year-old male who recently sustained a myocardial infarction and stenting of the left circumflex and was admitted at that time to [facility]. He was admitted to our hospital a few days ago with recurrent chest pain. At that time his EKG and enzymes showed normal evolution of his prior event. He had another episode of chest discomfort yesterday while walking in the grocery store, and because of that he came into the emergency room. His EKG showed no acute changes and his troponins were on the downward trend, but because of his recurrent symptoms, recommendation was made regarding cardiac catheterization. The procedure, its risks and complications were discussed with the patient, who was in full understanding and agreement. PROCEDURE: Patient was brought to the research lab assistant in a fasting, semi-sedated state after receiving fentanyl and Benadryl and achieving a moderate conscious sedated state. Using Xylocaine anesthesia and Seldinger technique, a 6-[place] sheath was introduced in the left radial artery. Selective right and left coronary angiography was performed using 5-[place]ian, 4 bend, right Mague and 3.5 bend left Mague catheters. Multiple views were taken of the coronary arteries, including hemiaxial views. Following that, a 5- [place] tight pigtail catheter was introduced in the left ventricle and a 30-degree MOONEY view of the left ventricle was obtained. Following that, catheter and sheath were removed. Hemostasis was obtained with deployment of a TR band. There was no immediate complication. Patient was returned to his room in stable condition. Of note, the patient received 4500 units of intravenous heparin as well as intra-arterial verapamil. FINDINGS: 1. Left main. This is a large-sized vessel bifurcating into left circumflex and left anterior descending artery. Left main coronary artery has no evidence of high-grade stenosis. 2. Left anterior descending artery. This is a large-sized vessel reaching toward the apex with a wrap around the apex segment giving rise to a diagonal branch of moderate caliber. The left anterior descending artery has a 20% to 30% plaque proximally. The rest of the vessel has no high-grade stenosis. 3. Left circumflex. This is a large, non-dominant vessel giving rise to 2 obtuse marginal branches. The stented segment in the proximal area is patent. There is no evidence to suggest acute thrombosis. In the AV groove left circumflex after the takeoff of the first obtuse marginal branch there is a 30% plaque. The rest of the vessel has no high-grade stenosis. 4. Right coronary artery. This is a dominant vessel, large in caliber, bifurcating into PDA and posterolateral segment and branches. The right PDA reaches to the inferoapical wall. The right coronary artery proximally has 20% to 30% plaque. The rest of the vessel has no high-grade stenosis. 5. Left ventriculogram. Left ventriculogram was performed in 30-degree MOONEY view and revealed normal left ventricular size and systolic function. Ejection fraction is 60%. There was no mitral regurgitation. 6. Hemodynamics. There was no gradient across the aortic valve. The left ventricular end-diastolic pressure was 12 to mmHg. CONCLUSION: 1. Mild triple-vessel coronary artery disease. 2. No evidence of re-stenosis or thrombosis at the site of the recent stenting. 3. Normal left ventricular size and systolic function. RECOMMENDATIONS: In view of findings and anatomy, I have recommended that he continue his medical therapy with the aggressive coronary risk modifications that have been initiated. Those findings and recommendations were discussed with the patient and his family, who are in full understanding and agreement. MMODL / IJN: [id number] /
[2018-05-31] MEDS ORDERED: PARoxetine 20 MG TAB PO SCH (17:30)
[2018-05-31] MEDS: ACETAMINOPHEN TAB 325 MG TAB PO PRN (19:49)
[2018-05-31 22:35] VITALS: BP 99/66; PULSE 72; TEMP 97.4
--- NOTE | 2018-06-01 08:39 | DS ---
DISCHARGE SUMMARY HISTORY/PHYSICAL AND DISCHARGE SUMMARY: This is both a history and physical and discharge summary on this patient. PRESENTING COMPLAINT: Chest pain. HISTORY OF PRESENTING COMPLAINT: This is a pleasant is a 52-year-old patient followed by Dr. Munguia. Chronic stable medical conditions include upper back pain, muscle spasms, GERD. On May 22, patient had gone to [facility] and had a stent to the circumflex and patient was home for a day after being there for 5 days. The patient was admitted on May 27, 2018 and discharged on May 28, 2018 after was seen by Cardiology. Elevated troponins were felt to be coming down from the recent [facility]. He was discharged. The patient is very anxious disposition and things were discussed a lot with him and his . The patient again presents now with upper back pain, some chest pain, being very anxious. Pain going to her shoulder. No shortness of breath. No dizziness. Because of his recent cardiac intervention, very concerned and decided to present to the ER, was admitted for a diagnosis of unstable angina. Cardiology was consulted. REVIEW OF SYSTEMS: CONSTITUTIONAL: None. HEENT: None. CARDIOVASCULAR: As above. GASTROINTESTINAL: Heartburn. GENITOURINARY: None. MUSCULOSKELETAL: Chronic upper back pain. DERMATOLOGICAL, HEMATOLOGIC, LYMPHATIC: None. PSYCHIATRY: Anxious. NEUROLOGICAL: None. PAST MEDICAL HISTORY: Coronary artery disease with stent to the circumflex 10 days ago, GERD, upper back pain from spasm from surgery, anxiety. PAST SURGICAL HISTORY: Surgery to the upper back, cardiac cath with stent, tonsillectomy, rhizotomy. SOCIAL HISTORY: No smoking, no alcohol. 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 No smoking. Alcohol rarely. FAMILY HISTORY: Reviewed, noncontributory to presentation. HOME MEDICATIONS: 1. Nitrostat 0.4 sublingual q.5 p.r.n. 2. Flonase 1 spray each nostril daily p.r.n. 3. Pepcid 20 mg b.i.d. 4. Plavix 75 mg p.o. daily. 5. Lipitor 40 mg q.h.s. 6. Aspirin 81 mg p.o. daily. ALLERGIES: TO VENOM . PHYSICAL EXAMINATION: VITAL SIGNS: Temperature 96.9, pulse 60, respiratory 18, blood pressure 94/59. Pulse ox 97% on room air. GENERAL APPEARANCE: Average build, lying in bed, comfortable. EYES: Pupils equal. Conjunctivae normal. HEENT: External appearance of nose and ears normal. Oral cavity normal. NECK: JVD not raised. Mass not palpable. RESPIRATORY: Effort normal. LUNGS are clear. CARDIOVASCULAR: 1st and 2nd sounds normal. No edema. ABDOMEN: Soft, nontender. Liver and spleen not palpable. PSYCHIATRY: Alert and oriented x3. Mood and affect slightly anxious-appearing. NEUROLOGICAL: Pupils equal. Cranial nerves grossly intact. Power and sensation grossly intact. INVESTIGATIONS: White count 7, hemoglobin 14.7, troponin 0.2, 0.2, 0.2. EKG tracing personally reviewed by me shows normal sinus rhythm. ASSESSMENT: 1. Upper back pain chest pain probably psychosomatic. 2. Coronary artery disease with recent intervention to the circumflex artery. 3. Upper back pain with muscle spasm. 4. Gastroesophageal reflux disease. PLAN: Patient did undergo cardiac catheterization with Dr. Luna. No acute blockage was found. The patient will be discharged home on the current medications. We will add Paxil for anxiety. Care was discussed with the patient and at the bedside. Questions were answered. FOLLOWUP: Follow up with Dr. Luna in 1 week. Follow up with Dr. Munguia in 1 week. This is both a history/physical and discharge summary on this patient. MMODL / IJN: [id number] /
[2018-06-01] MEDS ORDERED: ATORVASTATIN 40 MG TAB PO SCH (21:00)
== END 2018-05-31 22:10 | disposition home or self-care (01) ==
LOC: EC 18:21 → 3SCARD 20:33
PROVIDERS: ADMIT Hospitalist; ATTEND Hospitalist
DX: R07.89 Other chest pain (principal); M54.89 Other dorsalgia; I21.3 ST elevation (STEMI) myocardial infarction of unspecified site; M62.830 Muscle spasm of back; F41.9 Anxiety disorder, unspecified; I25.10 Atherosclerotic heart disease of native coronary artery without angina pectoris; E78.5 Hyperlipidemia, unspecified; Z95.5 Presence of coronary angioplasty implant and graft; K21.9 Gastro-esophageal reflux disease without esophagitis; I45.10 Unspecified right bundle-branch block; Z79.82 Long term (current) use of aspirin; Z79.02 Long term (current) use of antithrombotics/antiplatelets; Z79.899 Other long term (current) drug therapy; Z91.030 Bee allergy status; Z98.890 Other specified postprocedural states; Z82.49 Family history of ischemic heart disease and other diseases of the circulatory system
CPT/HCPCS: 96366 ×2; 96376; 96365; 99285; 36415; 93005; 93458; 83880; 80053; 82550 ×2; 82553 ×2; 83735; 84484 ×2; 85025 ×2; 85610; 85730 ×2; 71046; G0378 ×2; C1894; C1769; J2250; J1644 ×3; J2001; J3010; Q9967 ×2

== ENCOUNTER → 2019-05-29 | Day surgery (SDC) | payer BC ==
[2019-05-26 16:28] VITALS: BMI 23.1
[~2019-05-29] MED LIST: DEXAMETHASONE SOD PHOSPHATE 10 MG/ML 1 ML VIAL IV ONE; IV FLUID CONTINUATION 550 ML IV ONE; LACTATED RINGERS 1,000 ML IV SCH; LIDOCAINE 1% 20 ML VIAL (10MG/ML) FOR IV START INTRADERMA PRN; ONDANSETRON 4 MG/2 ML VIAL IVP ONE; PROPOFOL 10 MG/ML 20 ML VIAL IV ONE; SCOPOLAMINE 1.5MG/72HR PATCH TRANSDERM ONE
[2019-05-29 09:25] VITALS: TEMP 97.7
--- NOTE | 2019-05-29 10:12 | P.PCN ---
Date of Procedure: 05/29/19 Procedure(s) Performed: BRIEF HISTORY: Patient is a 53-year-old pleasant white male scheduled for an elective colonoscopy as a part of screening for colorectal neoplasia. PROCEDURE PERFORMED: Colonoscopy. PREOPERATIVE DIAGNOSIS: Screening for colon cancer. IV sedation per Anesthesia. PROCEDURE: After informed consent was obtained, the patient, was brought into the endoscopy unit. IV sedation was administered by Anesthesia under continuous monitoring. Digital rectal examination was normal. Initially the Olympus CF-160 flexible video colonoscope was then inserted in the rectum, gradually advanced into the cecum without any difficulty. Careful examination was performed as the scope was gradually being withdrawn. Ileocecal valve and the appendiceal orifice were visualized and appeared normal. Prep was excellent. Mucosa of the cecum, ascending colon, transverse colon, descending colon, sigmoid colon, and rectum appeared normal. Retroflexion was performed in the rectum and no lesions were seen. The patient tolerated the procedure well. IMPRESSION: Normal-appearing colon from rectum to cecum with no evidence of colorectal neoplasia. RECOMMENDATIONS: Findings of this examination were discussed with the patient as well as his family. He was advised to have a repeat screening colonoscopy in 10 years.
[2019-05-29 10:21] VITALS: RESP 16
[2019-05-29 10:31] VITALS: BP 110/72; PULSE 57
== END ==
LOC: ORWHC2ENDO 08:58
PROVIDERS: ATTEND Internal Medicine Gastroenterology
DX: Z12.11 Encounter for screening for malignant neoplasm of colon (principal); I25.10 Atherosclerotic heart disease of native coronary artery without angina pectoris; I10 Essential (primary) hypertension; E78.49 Other hyperlipidemia; I25.2 Old myocardial infarction; Z95.5 Presence of coronary angioplasty implant and graft; G47.33 Obstructive sleep apnea (adult) (pediatric); Z99.89 Dependence on other enabling machines and devices; K21.9 Gastro-esophageal reflux disease without esophagitis; Z79.82 Long term (current) use of aspirin; Z79.899 Other long term (current) drug therapy
CPT/HCPCS: J2704; G0121

== ENCOUNTER → 2019-12-31 | Outpatient (CLI) | payer BC ==
--- NOTE | 2019-12-31 14:10 | CONS ---
CONSULTATION DATE OF SERVICE: 12/31/2019. HISTORY OF PRESENT ILLNESS/SLEEP WAKE EVALUATION: A 54-year-old gentleman who has been evaluated in the Sleep Center for obstructive sleep apnea-hypopnea syndrome. 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 He has history of obstructive sleep apnea diagnosed about 5 years ago. At that time, he was told that obstructive sleep apnea in mild range. He was recommended to use CPAP equipment and he is using it during the night when he is not working. I checked his CPAP unit. Range of the pressure 4-15, average pressure is 6.1. For the last month, usage is 18/30 nights and 14/30 nights more than 4 hours. Apnea-hypopnea index reading from the machine is 0.9, which is normal. Leak is 14 L/minute which is borderline. [place] Sleepiness Scale today is 4. PAST MEDICAL HISTORY: Positive for hyperlipidemia, acid reflux, coronary artery disease, status post stent insertion in [place]. PAST SURGICAL HISTORY: Stent insertion in 2019. REVIEW OF SYSTEMS: Awakenings from sleep once with nocturia. No history of hypnagogic hallucinations, sleep paralysis or cataplexy. MEDICATIONS: Lipitor, baby aspirin, Nexium, Restasis eyedrops. SOCIAL HISTORY: Negative for smoking. Alcohol consumption rarely. FAMILY HISTORY: Heart problems, acid reflux. PHYSICAL EXAM: gentleman without distress, BP 104/56, HR 70, RR 16, height 6, 0, weight 185 pounds. Body mass index 25, temperature 98.1, oxygen saturation at room air 95%. OROPHARYNX: Low position of soft palate. Mallampati 3-4. Neck 15 inches in circumference. NECK: Supple, no JVD. Thyroid is not palpable. LUNGS: Clear to percussion and to auscultation. Good air exchange. No wheezing or rhonchi. HEART: S1, S2 regular. No murmurs, gallops, or rubs. ABDOMEN: Soft and nontender. Bowel sounds are present. No organomegaly appreciated. EXTREMITIES: No clubbing or cyanosis. SPECIAL WARFARE COMBATANT CREWMAN: Awake, alert, and oriented X3. Cranial nerves 2 to 7 intact. There is no fasciculation or atrophy. noted. No focal deficits observed. IMPRESSION: 1. History of obstructive sleep apnea-hypopnea syndrome for 5 years. The patient continues to use CPAP equipment. 2. Coronary artery disease, status post stent insertion. 3. Hyperlipidemia. 4. Acid reflux. PLAN: 1. We will repeat home sleep apnea test for evaluation of patient's breathing at the present time. 2. Patient should continue to use CPAP equipment. 3. Watching weight. 4. Sleep hygiene with time in bed for at least 7-1/2 hours. 5. No driving if feeling sleepiness. Thank you very much for referring this patient for evaluation. Sincerely, Flavio Mckeon MD, PhD, FAASM Diplomat of [place] [employer] Special[employer] Board of Internal Medicine Portable Pinch Riveter of [facility] [place] MMODL / IJN: [id number] /
== END | disposition home or self-care (01) ==
LOC: SLEEP 11:12
PROVIDERS: ATTEND Family Medicine
DX: G47.33 Obstructive sleep apnea (adult) (pediatric) (principal); E78.5 Hyperlipidemia, unspecified; K21.9 Gastro-esophageal reflux disease without esophagitis; I25.10 Atherosclerotic heart disease of native coronary artery without angina pectoris; Z99.89 Dependence on other enabling machines and devices; Z95.828 Presence of other vascular implants and grafts
CPT/HCPCS: 99211

== ENCOUNTER → 2020-03-30 | Outpatient (CLI) | payer BC ==
--- NOTE | 2020-03-30 21:02 | SFUN ---
SLEEP CENTER FOLLOW UP NOTE DATE OF SERVICE: 03/30/2020 54-year-old gentleman who has been followed in Sleep Center. Patient has history of obstructive sleep apnea. Because he lost his weight we repeated the sleep test for reevaluation of his breathing during the sleep. Sleep Test was done without any interruption of usage of the CPAP. The previous night before the test, he used the CPAP and then on the test on the next day he did not use CPAP and again the test showed apnea-hypopnea index of 3.2, which is in normal range, but in terms of confirmation of obstructive sleep apnea, could be a false negative results because again the patient continues to use his CPAP equipment. Presently, the patient did not use his CPAP equipment for about 1-1/2 months and according to his , he does not sleep well without CPAP. [place] Sleepiness Scale today is 5. MEDICATIONS: Lipitor, aspirin 81 mg, Nexium, Restasis eyedrops. PHYSICAL EXAM: Patient in no distress. BP 107/66, HR 70, RR 15, oxygen saturation at room air 97%. Body mass index 26. Temperature 97, height 6 feet 0 inches, weight 192, BMI 26. Oropharynx low position of soft palate, Mallampati 3-4. IMPRESSION: 1. History of obstructive sleep apnea-hypopnea syndrome for 5 years. Negative results of recent home sleep apnea test, but it was done on the next day after the patient continued to use his CPAP equipment. Most probably false negative results. Without CPAP, the patient's sleep quality is worse. 2. Coronary artery disease, status post stent insertion. 3. Hyperlipidemia. 4. Acid reflux. PLAN: 1. We will repeat home sleep apnea test. 2. Sleep hygiene with regular time in bed for 7.5 to 8 hours. 3. No driving if feeling sleepiness. 4. Watching weight. 5. Followup visit after the sleep study to discuss the results. Thank you very much for allowing me to participate in management of your patient. Sincerely, Flavio Mckeon MD, PhD, FAASM Diplomat of [place] [employer] Specialties [place] Board of Internal Medicine Wire Threader of [facility] [place] MMODL / GRZEGORZN: [id number] /
== END | disposition home or self-care (01) ==
LOC: SLEEP 15:17
PROVIDERS: ATTEND Internal Medicine
DX: I25.10 Atherosclerotic heart disease of native coronary artery without angina pectoris (principal); E78.5 Hyperlipidemia, unspecified; K21.9 Gastro-esophageal reflux disease without esophagitis; Z95.5 Presence of coronary angioplasty implant and graft; Z99.89 Dependence on other enabling machines and devices; Z79.82 Long term (current) use of aspirin; Z79.899 Other long term (current) drug therapy

== ENCOUNTER → 2020-07-07 | Outpatient (CLI) | payer BC ==
--- NOTE | 2020-07-07 17:41 | SFUN ---
SLEEP CENTER FOLLOW UP NOTE DATE OF SERVICE: 07/07/2020 This 54-year-old gentleman has been followed in Sleep Center for treatment of obstructive sleep apnea-hypopnea syndrome. The patient had a home sleep apnea test in January of 2020. At that time apnea-hypopnea index was 3.2, but the test was done on the following day after he continued to use his CPAP equipment. Because the test was negative, the patient stopped using the machine, and we repeated the test on April 06, 2020. Today he came to discuss results of this test. Test did not show any abnormalities of respiration. Apnea-hypopnea index was 1.5. Lowest oxygen level was 87%, but oxygen level was below or equal to 88% only for one minute, according to computer calculation. The patient did not use CPAP equipment since that time. He sleeps quite well. [place] Sleepiness Scale today is 5, which is totally normal. MEDICATIONS: Lipitor, aspirin 81 mg, Nexium, eyedrops with Restasis. PHYSICAL EXAMINATION: GENERAL: A pleasant patient in no distress. VITAL SIGNS: BP 100/55, HR 59, RR 15, height 6 feet 0 inches, weight 188.0, body mass index 25.2, temperature 96.0, oxygen saturation at room air 97%. HEENT: PERRLA, EOMI. Evaluation of oropharynx showed tongue protrudes midline. Moderately low position of soft palate. Mallampati III. NECK: Supple. No JVD. Thyroid is not palpable. LUNGS: Clear to percussion and to auscultation. Good air exchange. No wheezing or rhonchi. HEART: S1, S2 regular. No murmurs, gallops or rubs. ABDOMEN: Soft and nontender. Bowel sounds are present. No organomegaly appreciated. EXTREMITIES: No clubbing or cyanosis. MONEY ORDER CLERK: Awake, alert, and oriented X3. Cranial nerves 2 to 7 intact. There is no fasciculation or atrophy. noted. No focal deficits observed. IMPRESSION: 1. Recent sleep study did not show any significant respiratory abnormalities during sleep. Normal apnea-hypopnea index. Previously patient had sleep apnea, but after losing weight his respiration normalized. 2. Coronary artery disease, status post stent insertion. 3. Hyperlipidemia. 4. Acid reflux. PLAN: 1. Sleep hygiene with regular time in bed for 7-1/2 to 8 hours. 2. Watching weight. 3. No driving if feeling sleepiness. 4. Will follow the patient. If necessary, we will repeat the home sleep test in the future to confirm absence of any respiratory abnormalities. 5. Preferable position during sleep is on the side. Thank you very much for allowing me to participate in the management of your patient. Sincerely, Flavio Mckeon MD, PhD, FAASM Diplomat of [place] [employer] Specialties [place] Board of Internal Medicine Entry Level Receptionist of [facility] [place] MMODL / GRZEGORZN: [id number] /
== END ==
LOC: SLEEP 15:27
PROVIDERS: ATTEND Internal Medicine
DX: Z09 Encounter for follow-up examination after completed treatment for conditions other than malignant neoplasm (principal); I25.10 Atherosclerotic heart disease of native coronary artery without angina pectoris; E78.5 Hyperlipidemia, unspecified; K21.9 Gastro-esophageal reflux disease without esophagitis; Z95.5 Presence of coronary angioplasty implant and graft; Z79.82 Long term (current) use of aspirin; Z79.899 Other long term (current) drug therapy

== ENCOUNTER → 2021-02-16 | Outpatient (CLI) | payer BC ==
--- NOTE | 2021-02-17 11:08 | SFUN ---
SLEEP CENTER FOLLOW UP NOTE DATE OF SERVICE: 02/16/2021 This 55-year-old gentleman has been followed in Sleep Center because he has a history of obstructive sleep apnea-hypopnea syndrome. We repeated his home sleep apnea test one year ago and it was negative, and CPAP equipment was stopped. At present the patient continues to sleep pretty well. No significant awakenings from sleep. [place] Sleepiness Scale today is 5, which is normal. The patient weighs 3 pounds more than one year ago. MEDICATIONS: Aspirin 81 mg once a day, Lipitor. PHYSICAL EXAMINATION: GENERAL: Pleasant patient in no distress. VITAL SIGNS: BP 112/73, HR 75. RR 14, height 6 feet 1 inch, weight 191.8, body mass index 25.3, temperature 97.3, oxygen saturation at room air 96%. HEENT: PERRLA, EOMI, evaluation of oropharynx showed tongue protrudes midline. Moderately low position of soft palate; Mallampati III. NECK: Supple, no JVD. Thyroid is not palpable. LUNGS: Clear to percussion and to auscultation. Good air exchange. No wheezing or rhonchi. HEART: S1, S2 regular. No murmurs, gallops, or rubs. ABDOMEN: Soft and nontender. Bowel sounds are present. No organomegaly appreciated. EXTREMITIES: No clubbing or cyanosis. OPTOMETRIC AIDE: Awake, alert, and oriented X3. Cranial nerves 2 to 7 intact. There is no fasciculation or atrophy. noted. No focal deficits observed. IMPRESSION: 1. History of obstructive sleep apnea-hypopnea syndrome in the past. Home sleep apnea test was negative one year ago. 2. Coronary artery disease, status post stent insertion. 3. Hyperlipidemia. 4. Acid reflux. PLAN: 1. Repeat home sleep apnea test to be sure that the patient does not have any abnormalities of respiration during sleep. 2. Watching weight. 3. Sleep hygiene with regular time in bed for at least 8 hours. 4. No driving if feeling sleepiness. Thank you very much for allowing me to participate in the management of your patient. Sincerely, Flavio Mckeon MD, PhD, FAASM Diplomat of [place] Board of Medical Specialties Sleep Medicine Board of [place] Board of Internal Medicine It Infrastructure Project Manager of [facility] [place] MMODL / IJN: [id number] /
== END ==
LOC: SLEEP 15:27
PROVIDERS: ATTEND Internal Medicine
DX: G47.33 Obstructive sleep apnea (adult) (pediatric) (principal); I25.10 Atherosclerotic heart disease of native coronary artery without angina pectoris; E78.5 Hyperlipidemia, unspecified; K21.9 Gastro-esophageal reflux disease without esophagitis; Z95.5 Presence of coronary angioplasty implant and graft; Z79.82 Long term (current) use of aspirin; Z91.030 Bee allergy status

== ENCOUNTER 2021-02-21 22:57 | Emergency (ER) | payer BC ==
[2021-02-21 23:42] VITALS: BP 126/82; PULSE 69; RESP 20; TEMP 97.9
--- NOTE | 2021-02-22 00:33 | CT ---
EXAMINATION TYPE: CT brain wo con DATE OF EXAM: 02/22/2021 COMPARISON: None HISTORY: left ear, mastoid pain, CT DLP: 1178.4 mGycm Automated exposure control for dose reduction was used. Ventricles have normal size. There is no mass effect nor midline shift. There is no sign of intracran ial hemorrhage. Calvarium is intact. There is no evidence of cerebral edema. Skull base is intact. Th ere is normal aeration of the mastoid sinuses. External auditory canals appear intact. IMPRESSION: Normal unenhanced head CT scan.
--- NOTE | 2021-02-22 01:00 | ED ---
General Adult HPI - General Chief complaint: ENT Stated complaint: Hearing loss LT ear Source: patient, RN notes reviewed Mode of arrival: ambulatory Limitations: no limitations - History of Present Illness Initial comments: This a 55-year-old male presents emergency Department with chief complaint of left ear pain, difficulty hearing. Patient states started earlier today. Simón dawn states this feels plugged. Patient states that he has some discomfort below and behind his ear. Patient denies any fevers chills no chest pain or shortness breath no neck stiffness. Patient states he had a NC 2 years ago and is always concerned though again he states he has no complaints of chest pain back pain shortness breath diaphoresis - Related Data Home Medications Medication Instructions Recorded Confirmed Aspirin EC [Ecotrin Low Dose] 81 mg PO DAILY 05/27/18 05/29/19 Atorvastatin [Lipitor] 40 mg PO HS 05/27/18 05/29/19 Clopidogrel [Plavix] 75 mg PO DAILY 05/27/18 05/29/19 Nitroglycerin Sl Tabs [Nitrostat] 0.4 mg SUBLINGUAL Q5M PRN 05/27/18 05/29/19 Multivit-Min/Folic/Vit K/Lycop 1 each PO DAILY 05/26/19 05/29/19 [Men's Multivitamin Tablet] Nexium (Unknown Dose) 1 tab PO DAILY 05/26/19 05/29/19 Allergies Allergy/AdvReac Type Severity Reaction Status Date / Time venom-wasp Allergy Anaphylaxis Verified 02/21/21 23:42 Review of Systems ROS Statement: Those systems with pertinent positive or pertinent negative responses have been documented in the HPI. ROS Other: All systems not noted in ROS Statement are negative. Past Medical History Past Medical History: Coronary Artery Disease (CAD), GERD/Reflux, Myocardial Infarction (NC), Sleep Apnea/CPAP/BIPAP Additional Past Medical History / Comment(s): USES C-PAP MACHINE, BACK PAIN, SKIN LESION REMOVED FROM SHOULDER-NO RESULTS YET., CARDIAC STENT 05/22/18- WAS TAKING PLAVIX . Last Myocardial Infarction Date:: 05/22/18 History of Any Multi-Drug Resistant Organisms: None Reported Past Surgical History: Back Surgery, Heart Catheterization With Stent, Tonsillectomy Additional Past Surgical History / Comment(s): Rhizotomy, HEART CATH WITH STENT (05/22/18) Past Anesthesia/Blood Transfusion Reactions: No Reported Reaction Date of Last Stent Placement:: 05/22/18 Past Psychological History: No Psychological Hx Reported Smoking Status: Never smoker Past Alcohol Use History: Rare Past Drug Use History: None Reported - Past Family History Mother Family Medical History: No Reported History General Exam Limitations: no limitations General appearance: alert, in no apparent distress Head exam: Present: atraumatic, normocephalic, normal inspection Eye exam: Present: normal appearance, PERRL, EOMI. Absent: scleral icterus, conjunctival injection, periorbital swelling ENT exam: Present: normal oropharynx, mucous membranes moist, TM's normal bilaterally. Absent: normal external ear exam (Cerumen impaction left) Neck exam: Present: normal inspection, full ROM. Absent: tenderness, meningismus, lymphadenopathy Respiratory exam: Present: normal lung sounds bilaterally. Absent: respiratory distress, wheezes, rales, rhonchi, stridor Cardiovascular Exam: Present: regular rate, normal rhythm, normal heart sounds. Absent: systolic murmur, diastolic murmur, rubs, gallop, clicks Course Vital Signs 02/21/21 23:38 Temperature 97.9 F Pulse Rate 69 Respiratory 20 Rate Blood Pressure 126/82 O2 Sat by Pulse 97 Oximetry Procedures - Ear Wax Removal Left Ear Ear Canal Irrigated by: RN Ear Canal Irrigated With: warm saline using syringe/angiocath Results: Re-examined: cerumen removed completely TM Visible: TM(s) intact, normal appearance Ear Canal: atraumatic Patient Tolerated Procedure: well, no complications Complications: no problems Medical Decision Making - Medical Decision Making Patient requested EKG is concern for cardiac thoroughly and no complaints and is asymptomatic, EKG unremarkable. Patient did have his cerumen impaction which was flushed and feels greatly improved CT of the mastoid was obtained which showed no evidence of mastoiditis. Disposition Clinical Impression: Impacted cerumen of left ear, Eustachian tube dysfunction Disposition: HOME SELF-CARE Condition: Stable Instructions (If sedation given, give patient instructions): Earache (ED) Additional Instructions: Please return to the Emergency Department if symptoms worsen or any other concerns. Is patient prescribed a controlled substance at d/c from ED?: No Referrals: Luis Alberto Munguia MD [Primary Care Provider] - 1-2 days Time of Disposition: 01:00
== END 2021-02-22 01:12 | disposition home or self-care (01) ==
LOC: EC 22:57
DX: H61.22 Impacted cerumen, left ear (principal); H69.92 Unspecified Eustachian tube disorder, left ear; I25.10 Atherosclerotic heart disease of native coronary artery without angina pectoris; K21.9 Gastro-esophageal reflux disease without esophagitis; I25.2 Old myocardial infarction; Z79.82 Long term (current) use of aspirin; Z79.02 Long term (current) use of antithrombotics/antiplatelets; Z90.89 Acquired absence of other organs
CPT/HCPCS: 69209; 70450; 93005; 99283

== ENCOUNTER → 2021-05-11 | Outpatient (CLI) | payer BC ==
--- NOTE | 2021-05-11 17:16 | SFUN ---
SLEEP CENTER FOLLOW UP NOTE DATE OF SERVICE: 05/11/2021 This 55-year-old gentleman has been followed in Sleep Center for treatment of obstructive sleep apnea-hypopnea syndrome. Patient had a sleep study on April 07, 2021. It was a home sleep apnea test which showed apnea-hypopnea index 11.6 with oxygen desaturation to 86%. Oxygen level was below normal range for 8 minutes during the sleep test. I discussed results of this sleep study with the patient in detail. The patient was on treatment with CPAP in the past. Then sleep study was negative for obstructive sleep apnea, and he stopped treatment. Recently he restarted his treatment. I checked his CPAP unit. He used it for the last 8 nights. Range of the pressure 4 to 15, average usage 5.6 hours per night. Leak is 6 L/minute. Apnea-hypopnea index was 1.6, which is in normal range. MEDICATIONS: 1. Lipitor 40 mg once a day. 2. Aspirin 81 mg once a day. 3. Multivitamins. PHYSICAL EXAMINATION: GENERAL: Pleasant patient in no distress. VITAL SIGNS: BP 109/65, HR 66, RR 16, weight 191, height 6 feet 1 inch. HEENT: PERRLA, EOMI, evaluation of oropharynx showed tongue protrudes midline. Low position of soft palate; Mallampati III. NECK: Supple, no JVD. Thyroid is not palpable. LUNGS: Clear to percussion and to auscultation. Good air exchange. No wheezing or rhonchi. HEART: S1, S2 regular. No murmurs, gallops, or rubs. ABDOMEN: Soft and nontender. Bowel sounds are present. No organomegaly appreciated. EXTREMITIES: No clubbing or cyanosis. DIABETES SPECIALIST: Awake, alert, and oriented X3. Cranial nerves 2 to 7 intact. There is no fasciculation or atrophy. noted. No focal deficits observed. IMPRESSION: 1. Obstructive sleep apnea-hypopnea syndrome by results of home sleep apnea test, which may underestimate severity of sleep apnea. Mild obstructive sleep apnea- hypopnea syndrome. 2. Coronary artery disease, status post stent insertion. 3. Hyperlipidemia. 4. Acid reflux. PLAN: 1. Patient should use CPAP equipment every night for the whole night. The regimen in the machine locks acceptable. His respiration at this pressure is normal. 2. Sleep hygiene with regular time in bed for at least 7-1/2 to 8 hours. 3. Precautions related to driving. No driving if feeling sleepiness. 4. I will maintain all necessary prescription for PAP supplies including mask, tube, filters. 5. Watching weight. 6. Follow-up visit in 6 months or earlier if patient has any problems. Thank you very much for allowing me to participate in the management of your patient. Sincerely, Flavio Mckeon MD, PhD, FAASM Diplomat of [place] Board [employer] Specialties Sleep Medicine Board of [place] Board of Internal Medicine Airframe Design Engineer of [facility] [place] MMODL / IJN: [id number] /
== END ==
LOC: SLEEP 14:46
PROVIDERS: ATTEND Internal Medicine
DX: G47.33 Obstructive sleep apnea (adult) (pediatric) (principal); I25.10 Atherosclerotic heart disease of native coronary artery without angina pectoris; E78.5 Hyperlipidemia, unspecified; K21.9 Gastro-esophageal reflux disease without esophagitis; Z95.5 Presence of coronary angioplasty implant and graft; Z79.82 Long term (current) use of aspirin; Z91.030 Bee allergy status

== ENCOUNTER → 2021-12-07 | Outpatient (CLI) | payer BC ==
--- NOTE | 2021-12-07 16:44 | P.PN ---
Subjective DATE: 12/07/2021 FOLLOW UP VISIT. Patient with obstructive sleep apnea hypopnea syndrome return to sleep center for follow-up visit. Information from previous visit have been reviewed. Patient is using PAP equipment every night for the whole night, getting PAP supplies in time. The patient does not have significant problems with the mask, PAP unit and humidification. [place] sleepiness scale is 7. I checked information from PAP unit. PAP unit pressure 4-15, average 6.5 cm H2O. Usage is 80 % for more then 4 hours, average 5 hours per night. Leak is 13 l/m, which is in acceptable range. Apnea Hypopnea Index is 1.0, which is normal. MEDICATIONS:1. Lipitor 40 mg once a day 2. Aspirin 81 mg once a day 3. Restasis eyedrops During physical exam: GENERAL: A pleasant patient without any distress. VITAL SIGNS: BP 116/70, HR 67, RR 16 , weight 188.6, temperature 97.1, oxygen saturation at room air 96 % . HEENT: PERRLA, EOMI.low position of soft palate, Mallapati 3 . NECK: Supple. No JVD. LUNGS: Clear to percussion and to auscultation. Good air exchange. No wheezing or rhonchi. HEART: S1, S2 regular. ABDOMEN: Soft and nontender.[] EXTREMITIES: No clubbing or cyanosis. DIAL SCREW ASSEMBLER: Awake, alert, and oriented x3. No focal deficit. Impressions: 1. Obstructive sleep apnea-hypopnea syndrome. Patient demonstrated great compliance with treatment, benefiting from treatment. 2. Coronary artery disease, status post stent insertion. 3. Acid reflux. 4. Hyperlipidemia. Plan: 1. Continue using PAP equipment every night for the whole night. 2. To change air filter at least 1-2 times per month. 3. PAP unit should stay lower then position of the head. 4. Advised patient to remove all remaining water from humidifier canister daily and make it dry after each usage. Refill canister with fresh distilled water before each usage. 5. Sleep hygiene with regular time in bed for at least 8 hours. 6. Precautions related to driving. No driving if feel any sleepiness. 7. I will maintain prescription for PAP supplies including mask, tube, filters. 8. Follow up visit in 6 months or earlier if patient has any problems. Thank you very much for allowing me to participate in the management of your patient. Flavio Stefadu, MD, PhD, FAASM. Diplomat of [employer], Sleep Medicine Board by [employer] Test Eng of [facility] [place]
== END ==
LOC: SLEEP 16:18
PROVIDERS: ATTEND Internal Medicine
DX: G47.33 Obstructive sleep apnea (adult) (pediatric) (principal); I25.10 Atherosclerotic heart disease of native coronary artery without angina pectoris; Z95.5 Presence of coronary angioplasty implant and graft; K21.9 Gastro-esophageal reflux disease without esophagitis; E78.5 Hyperlipidemia, unspecified; Z99.89 Dependence on other enabling machines and devices; Z79.82 Long term (current) use of aspirin; Z91.038 Other insect allergy status
CPT/HCPCS: 99212

== ENCOUNTER → 2023-07-10 | Outpatient (CLI) | payer BC ==
--- NOTE | 2023-07-10 18:30 | P.PN ---
Subjective DATE: 07/10/2023 FOLLOW UP VISIT. Patient with obstructive sleep apnea hypopnea syndrome return to sleep center for follow-up visit. Information from previous visit have been reviewed. Patient is using PAP equipment every night for the whole night, getting PAP supplies in time. The patient does not have significant problems with the mask, PAP unit and humidification. [place] sleepiness scale is 5, which is normal. I checked information from PAP unit. PAP unit pressure 4-15, average 7.2 cm H2O. Usage is 70% for more then 4 hours, average 5.8 hours per night. Leak is 12 l/m, which is in acceptable range. Apnea Hypopnea Index is 1.4, which is normal. MEDICATIONS:1. Lipitor 40 mg once a day 2. Aspirin 81 mg once a day During physical exam: GENERAL: A pleasant patient without any distress. VITAL SIGNS: Please see below. HEENT: PERRLA, EOMI.low position of soft palate, Mallapati 3 . NECK: Supple. No JVD. LUNGS: Clear to percussion and to auscultation. Good air exchange. No wheezing or rhonchi. HEART: S1, S2 regular. ABDOMEN: Soft and nontender.[] EXTREMITIES: No clubbing or cyanosis. JIGGER ARTISAN: Awake, alert, and oriented x3. No focal deficit. Impressions: 1. Obstructive sleep apnea-hypopnea syndrome. Patient demonstrated great compliance with treatment, benefiting from treatment. 2. Coronary artery disease, status post stent insertion. 3. Hyperlipidemia. 4. History of acid reflux. Plan: 1. Continue using PAP equipment every night for the whole night. 2. To change air filter at least 1-2 times per month. 3. PAP unit should stay lower then position of the head. 4. Advised patient to remove all remaining water from humidifier canister daily and make it dry after each usage. Refill canister with fresh distilled water before each usage. 5. Sleep hygiene with regular time in bed for at least 8 hours. 6. Precautions related to driving. No driving if feel any sleepiness. 7. I will maintain prescription for PAP supplies including mask, tube, filters. 8. Watching weight. 9. Follow up visit in 6 months or earlier if patient has any problems. Thank you very much for allowing me to participate in the management of your patient. Flavio Mckeon MD, PhD, FAASM. Diplomat of [employer], Sleep Medicine Board by [employer] Process Engineer of [facility] [place] Objective - Vital Signs Vital signs: Vital Signs Temp 98.0 F 07/10/23 18:14 Pulse 60 07/10/23 18:14 Resp 16 07/10/23 18:14 BP 119/77 07/10/23 18:14 Pulse Ox 98 07/10/23 18:14 FiO2
[2023-07-10 18:32] VITALS: BP 119/77; PULSE 60; RESP 16; TEMP 98
== END ==
LOC: 3 N SLEEP 16:41
PROVIDERS: ATTEND Internal Medicine
DX: G47.33 Obstructive sleep apnea (adult) (pediatric) (principal); I25.10 Atherosclerotic heart disease of native coronary artery without angina pectoris; Z95.5 Presence of coronary angioplasty implant and graft; E78.5 Hyperlipidemia, unspecified; K21.9 Gastro-esophageal reflux disease without esophagitis; Z79.899 Other long term (current) drug therapy; Z99.89 Dependence on other enabling machines and devices; Z91.030 Bee allergy status; Z79.82 Long term (current) use of aspirin
CPT/HCPCS: 99212

== ENCOUNTER → 2024-03-26 | Outpatient (CLI) | payer BC ==
[2024-03-26 10:49] VITALS: BP 125/82; PULSE 62; RESP 16; TEMP 97.7
--- NOTE | 2024-03-26 11:22 | P.PROGSL ---
Subjective DATE: 03/26/2024 FOLLOW UP VISIT. Patient with obstructive sleep apnea hypopnea syndrome return to sleep center for follow-up visit. Information from previous visit have been reviewed. Patient is using PAP equipment every night for the whole night, getting PAP supplies in time. The patient does not have significant problems with the mask, PAP unit and humidification. Sometimes he feels pressure is too high when he wakes up. [place] sleepiness scale is 3, which is perfect. I checked information from PAP unit. PAP unit pressure 4-15, average 6.9 cm H2O. Usage is 72% for more then 4 hours, average 5.8 hours per night. Leak is 11 l/m, which is in acceptable range. Apnea Hypopnea Index is 2.6, which is normal. MEDICATIONS have been reviewed, please see below. During physical exam: GENERAL: A pleasant patient without any distress. VITAL SIGNS: Please see below, weight is 193.0 lbs. HEENT: PERRLA, EOMI.low position of soft palate, Mallapati 3. NECK: Supple. No JVD. LUNGS: Clear to percussion and to auscultation. Good air exchange. No wheezing or rhonchi. HEART: S1, S2 regular. ABDOMEN: Soft and nontender.[] EXTREMITIES: No clubbing or cyanosis. DINING ROOM HELPER: Awake, alert, and oriented x3. No focal deficit. Impressions: 1. Obstructive sleep apnea-hypopnea syndrome. Patient demonstrated great compliance with treatment, benefiting from treatment. 2. Coronary artery disease, status post stent insertion. 3. Hyperlipidemia. 4. History of acid reflux. I changed parameters of CPAP unit. I decreased maximal level of pressure down to 10 cm of water. Ramp was switched off to automatic regimen with starting pressure of 4 cm of water. Plan: 1. Continue using PAP equipment every night for the whole night. 2. Sleep hygiene with regular time in bed for at least 7.5-8 hours 3. PAP unit should stay lower then position of the head. 4. Advised patient to remove all remaining water from humidifier canister daily and make it dry after each usage. Refill canister with fresh distilled water before each usage. 5. Watching weight. 6. Precautions related to driving. No driving if feel any sleepiness. 7. I will maintain prescription for PAP supplies including mask, tube, filters. 8. Follow up visit in 8 months or earlier if patient has any problems. Thank you very much for allowing me to participate in the management of your patient. Flavio Mckeon MD, PhD, FAASM. Diplomat of [employer], Sleep Medicine Board by [employer] Certified Energy Manager of [facility] [place] cc: Ulices Munguia MD Objective - Vital Signs Vital Signs: Vital Signs Temp 97.7 F 03/26/24 10:47 Pulse 62 03/26/24 10:47 Resp 16 03/26/24 10:47 BP 125/82 03/26/24 10:47 Pulse Ox 94 L 03/26/24 10:47 FiO2 Intake & Output 03/25/24 03/26/24 03/26/24 18:59 06:59 18:59 Weight 87.543 kg Home Medications: Home Medications Medication Instructions Recorded Confirmed Type Aspirin EC [Ecotrin Low Dose] 81 mg PO DAILY 05/27/18 03/26/24 History Atorvastatin [Lipitor] 40 mg PO HS 05/27/18 03/26/24 History Clopidogrel [Plavix] 75 mg PO DAILY 05/27/18 05/29/19 History Nitroglycerin Sl Tabs [Nitrostat] 0.4 mg SUBLINGUAL Q5M PRN 05/27/18 05/29/19 History Multivit-Min/Folic/Vit K/Lycop 1 each PO DAILY 05/26/19 05/29/19 History [Men's Multivitamin Tablet] Nexium (Unknown Dose) 1 tab PO DAILY 05/26/19 05/29/19 History
== END ==
LOC: 3 N SLEEP 10:28
PROVIDERS: ATTEND Internal Medicine
DX: G47.33 Obstructive sleep apnea (adult) (pediatric) (principal); I25.10 Atherosclerotic heart disease of native coronary artery without angina pectoris; E78.5 Hyperlipidemia, unspecified; Z87.19 Personal history of other diseases of the digestive system; Z99.89 Dependence on other enabling machines and devices; Z95.5 Presence of coronary angioplasty implant and graft; Z79.02 Long term (current) use of antithrombotics/antiplatelets; Z91.030 Bee allergy status
CPT/HCPCS: 99212